=== PATIENT | male | born 1970 | race Two or more races ===

== ENCOUNTER → 2021-08-08 12:40 | Outpatient (BNVA) | payer MEDICAID, SELFPAY | PROVIDERS: PCP Family Medicine; Referring Provider Family Medicine; Visit Provider Physician Assistant | DX: Z12.11 Encounter for screening for malignant neoplasm of colon (principal) | CPT/HCPCS: 99202 ==

== ENCOUNTER 2021-09-13 13:05 | Day surgery (SDC) | payer MEDICAID, SELFPAY ==
[2021-09-06 16:02] VITALS: BMI 29.2
--- NOTE | 2021-09-13 13:08 | MHC.SHP ---
Pre-Procedural Eval Section A Date of Service: 09/13/21 Section B Chief Complaint: Screening Relevant Family History (Specify if Yes): No Relevant Social History: None Present Medications: see Short Stay Collaborative assessment Medical History: Significant History (deaf, HTN, ) History of Previous Operations: No relevant previous surgery Allergies: Allergies Allergy/AdvReac Type Severity Reaction Status Date / Time fish derived [fish] Allergy Hives Verified 09/06/21 16:01 sodium chloride AdvReac Intermediate tachycardia Verified 09/06/21 15:54 Review of Systems Sugical H&P ROS: Negative: Constitution, Cardiovascular, Respiratory, Neurological, Psychiatric, Hem-Onc, Allergic/Immunologic, Gastrointestinal, Genitourinary, Musculoskeletal, Integumentary, Endocrine and Eyes/Ears/Nose/Throat Exam Surgical H&P Exam: Normal: Heart, Normal: Lungs, Normal: Extremities, Normal: Abdomen, Normal: Skin and Normal: Neurological and Significant Findings: HEENT (deaf) Plan Diagnosis/Plan: Unchanged I have reviewed the history and physical and performed a pertinent physical examination on my patient. No changes have occurred unless specified.
--- NOTE | 2021-09-13 13:22 | P.CONAN_ITS ---
[facility] Active Problems Active Problems: All Active Problems (Updated 09/06/21 @ 15:55 by Jessica nelson RN) Encounter for screening colonoscopy (Acute) Past Medical History Medical History HTN (hypertension) Cognitive capacity: surdo-mutity Functional capacity: independent ambulation Family History Family History Sister Colon polyps Mother Asthma Family history of problems with anesthesia: No Surgical History History of Problems with Anesthesia: No Social History Social History (Updated 08/08/21 @ 13:14 by Penny Tobar PA-C) Household Members Other:: - no kids Alcohol intake: never Patient Tobacco Use Status: Never used Tobacco Use of substances other than those prescribed or required for medical reasons: No Are you DNR?: No Advance Directives: No Advance Directives on File: No Current occupational status: unemployed and retired Meds Allergies Allergy/AdvReac Type Severity Reaction Status Date / Time fish derived [fish] Allergy Hives Verified 09/06/21 16:01 sodium chloride AdvReac Intermediate tachycardia Verified 09/06/21 15:54 Home Medications Medication Instructions Recorded Confirmed Last Taken Type amlodipine 5 mg tablet 5 mg PO DAILY 08/08/21 09/06/21 Unknown History carvedilol 12.5 mg tablet 12.5 mg PO BID 08/08/21 09/06/21 Unknown History hydrochlorothiazide 25 mg tablet 25 mg PO DAILY 08/08/21 09/06/21 Unknown History lisinopril 40 mg tablet 40 mg PO DAILY 08/08/21 09/06/21 Unknown History spironolactone 50 mg tablet 50 mg PO DAILY 08/08/21 09/06/21 Unknown History Exam Exam Date and Time: September 13, 2021 1322 Height,Weight and Vital Signs: Height 5 ft 7 in Weight 84.822 kg Assessment and Plan Final Anesthetic Review Family History of Problems with Anesthesia: No History of Problems with Anesthesia: No
[2021-09-13 13:33] VITALS: BP 121/79; PULSE 70; RESP 16; TEMP 36.1; O2SAT 97
[2021-09-13] MEDS: Lactated Ringers 1,000 ML 50 ML IVCONT (13:45)
--- NOTE | 2021-09-13 14:18 | PM.OP ---
Brief Operative Note Date of Service: 09/13/21 Pre-op diagnosis: screening colonoscopy Post-op diagnosis: same Procedure: see op note Surgeon: Cornel Jiang MD Anesthesia: MAC Was an Veterinary Laboratory Diagnostician used for this Procedure?: No Estimated blood loss (mL): 0 Condition: stable Disposition: PACU
--- NOTE | 2021-09-13 14:18 | W.PM.OPN ---
Operative Note Operative Note Date of Service: 09/13/21 Narrative: Operative Information Procedure Description: Colonoscopy COLONOSCOPY Instrument: Olympus variable stiffness pediatric scope 190L Colonoscopy Monitoring: Vital signs and clinical assessment, continuous EKG monitoring, Pulse oximetry, Carbon Dioxide monitoring and blood pressure monitoring were done throughout the procedure. Colon withdrawal time was 12 minutes. Procedure: The patient was placed in the left lateral decubitis position and pre-procedure medications were administered. After a digital rectal examination of the ano-rectum, the video colonoscope was inserted into the rectum and advanced through the colon to the cecum/TI. The colonoscope was slowly withdrawn in a retrograde panoramic fashion and the colon mucosa was carefully examined including a retroflexed view of the rectum. Findings and interventions are described below. Procedure Difficulty: moderate due to looping, redundant colon Findings: Terminal Ileum-not intubated scattered diverticula thru out colon Cecum:normal Ascending Colon: normal Transverse Colon -normal Descending Colon:normal Sigmoid Colon: 10-12 mm sessile polyp removed with cold snare, some residual tissue taken with forceps Rectum: Retroflexion with moderate sized internal hemorrhoids, grade II with skin tags Anorectum - internal hemorrhoids seen at anal verge Colon preparation: [place] Bowel Preparation Scale Right colon; 3 Transverse colon: 2 Left colon; 3 (0 = Unprepared colon segment with mucosa not seen due to solid stool that cannot be cleared. 1 = Portion of mucosa of the colon segment seen, but other areas of the colon segment not well seen due to staining, residual stool and/or opaque liquid. 2 = Minor amount of residual staining, small fragments of stool and/or opaque liquid, but mucosa of colon segment seen well. 3 = Entire mucosa of colon segment seen well with no residual staining, small fragments of stool or opaque liquid) Impression and Post Procedure Diagnosis: polyp internal hemorrhoids diverticular disease Plan: High fiber diet leaflet Avoid straining at stool, epsom salts and sitz bath, anusol supps or cream Repeat Colonoscopy in 5 years due to polyp or earlier if clinically indicated Above findings were reviewed with the patient and relevant handouts were provided if indicated.
[2021-09-13 14:25] VITALS: BP 111/55; PULSE 77; RESP 14; TEMP 36.5; O2SAT 98
[2021-09-13 14:55] VITALS: BP 113/66; PULSE 65; RESP 18; TEMP 36.4; O2SAT 96
== END 2021-09-13 15:40 | disposition home or self-care (01) ==
PROVIDERS: PCP Family Medicine; Visit Provider Internal Medicine Gastroenterology
PROC: 0DJD8ZZ Inspection of Lower Intestinal Tract, Via Natural or Artificial Opening Endoscopic (ICD-10-PCS; CPT 45378; principal; 2021-09-13 14:10)
DX: Z12.11 Encounter for screening for malignant neoplasm of colon (principal); Z83.71 Family history of colonic polyps; D12.5 Benign neoplasm of sigmoid colon; K57.30 Diverticulosis of large intestine without perforation or abscess without bleeding; K64.1 Second degree hemorrhoids; K64.4 Residual hemorrhoidal skin tags; I10 Essential (primary) hypertension; H91.90 Unspecified hearing loss, unspecified ear; H54.7 Unspecified visual loss; Z79.899 Other long term (current) drug therapy
CPT/HCPCS: 45385; 45380; 88305

== ENCOUNTER → 2021-12-31 12:33 | Outpatient (BNVA) | payer MEDICAID, SELFPAY | PROVIDERS: PCP Family Medicine; Referring Provider Family Medicine; Visit Provider Physician Assistant | DX: K57.30 Diverticulosis of large intestine without perforation or abscess without bleeding (principal); K64.9 Unspecified hemorrhoids; D36.9 Benign neoplasm, unspecified site | CPT/HCPCS: 99212 ==

== ENCOUNTER 2022-12-03 16:09 | Outpatient (REF) | payer MEDICAID, SELFPAY ==
--- NOTE | ~2022-12-03 | XR_ITS ---
EXAMINATION: XR ELBOW, LEFT CLINICAL INFORMATION: Left elbow pain. COMPARISON: None TECHNIQUE: AP, lateral, and oblique views of the left elbow. FINDINGS: There is a large olecranon enthesophyte. Small lateral epicondylar enthesophyte is also visualized. No loose bodies, bony erosive changes or joint effusion noted. No visible acute fracture or dislocation. XR/XR elbow LT 2V IMPRESSION: Large degenerative olecranon process and a small medial epicondyle enthesophytes.
== END 2022-12-03 16:10 | disposition home or self-care (01) ==
LOC: HO.XRAY 16:09
PROVIDERS: PCP Family Medicine; Visit Provider Family Medicine
DX: M25.422 Effusion, left elbow (principal)
CPT/HCPCS: 73070

== ENCOUNTER → 2022-12-23 09:02 | Outpatient (BNVA) | payer MEDICAID, SELFPAY | PROVIDERS: PCP Family Medicine; Visit Provider Orthopaedic Surgery | DX: M70.32 Other bursitis of elbow, left elbow (principal) | CPT/HCPCS: 99202 ==

== ENCOUNTER 2023-10-06 09:16 | Outpatient (REF) | payer MEDICAID, SELFPAY ==
[2023-10-06 11:17] LABS: MANUAL DIFF FLAG NO
[2023-10-06 11:37] LABS: Basophils Percent Auto 0.5 % (0-2); Eosinophils Absolute Auto 0.1 X10*3/uL (0.0-0.4); Eosinophils Percent Auto 1.2 % (0-4); Hematocrit 43.6 % (42.0-52.0); Hemoglobin 14.1 g/dl (14.0-18.0); Imm Gran Abs Auto 0.02 X10*3/uL (0.00-0.03); Imm Gran Pct Auto 0.3 % (0.0-0.4); Lymphocytes Absolute Auto 2.4 X10*3/uL (1.2-4.9); Lymphocytes Percent Auto 39.4 % (20-40); Mean Corpuscular HGB Conc 32.3 g/dl (31.0-36.0); Mean Corpuscular Hemoglobin 28.8 pg (27.0-33.0); Mean Corpuscular Volume 89.2 fL (80.0-98.0); Mean Platelet Volume 10.9 fL (9.4-12.4); Monocytes Absolute Auto 0.5 X10*3/uL (0.1-1.2); Monocytes Percent Auto 7.7 % (2-11); Neutrophils Absolute Auto 3.1 x10*3/uL (2.0-8.3); Neutrophils Percent Auto 50.9 % (45-73); Platelet Count 254 X10*3/uL (160-400); Red Blood Count 4.89 X10*6/uL (4.60-5.80); Red Cell Distribution Width 12.5 % (11.0-16.0)
[2023-10-06 11:50] LABS: Anion Gap 11 (12-20); Blood Urea Nitrogen 20 mg/dL (9-16); C Reactive Protein < 0.10 mg/dL (< or = 0.50); Calcium 9.7 mg/dL (8.4-10.2); Carbon Dioxide 27 mmol/L (22-29); Chloride 102 mmol/L (96-108); Estimated Glomerular Filt Rate 55; Glucose Random 96 mg/dL (60-115); Potassium 4.4 mmol/L (3.3-5.1); Sodium 136 mmol/L (135-145); Uric Acid 7.7 mg/dL (3.4-7.0)
== END 2023-10-06 09:17 | disposition home or self-care (01) ==
LOC: HO.HHCLNP 09:16
PROVIDERS: Visit Provider Family Medicine
DX: M25.422 Effusion, left elbow (principal)
CPT/HCPCS: 36415; 80048; 84550; 85025; 86140

== ENCOUNTER 2023-11-18 09:18 | Outpatient (REF) | payer MEDICAID, SELFPAY ==
[2023-11-18 11:20] LABS: MANUAL DIFF FLAG NO
[2023-11-18 11:34] LABS: Basophils Percent Auto 0.3 % (0-2); Eosinophils Absolute Auto 0.1 X10*3/uL (0.0-0.4); Eosinophils Percent Auto 0.5 % (0-4); Hemoglobin 14.3 g/dl (14.0-18.0); Imm Gran Abs Auto 0.03 X10*3/uL (0.00-0.03); Imm Gran Pct Auto 0.3 % (0.0-0.4); Lymphocytes Absolute Auto 1.8 X10*3/uL (1.2-4.9); Lymphocytes Percent Auto 18.8 % (20-40); Mean Corpuscular HGB Conc 32.5 g/dl (31.0-36.0); Mean Corpuscular Volume 89.2 fL (80.0-98.0); Monocytes Absolute Auto 0.5 X10*3/uL (0.1-1.2); Monocytes Percent Auto 5.6 % (2-11); Neutrophils Absolute Auto 7.2 x10*3/uL (2.0-8.3); Neutrophils Percent Auto 74.5 % (45-73); Platelet Count 253 X10*3/uL (160-400); Red Blood Count 4.93 X10*6/uL (4.60-5.80); Red Cell Distribution Width 12.5 % (11.0-16.0); White Blood Count 9.6 X10*3/uL (4.8-10.8)
[2023-11-18 12:00] LABS: HIV AB/AG Nonreactive (Nonreactive); HIV Num 1 0.04 S/CO (0.00-0.99); ~HepC Num1 0.78 S/CO (0.00-0.79); ~Hepatitis C Antibody Nonreactive (Nonreactive)
[2023-11-18 12:18] LABS: Alanine Aminotransferase 33 U/L (0-40); Albumin Level 4.3 g/dL (3.5-5.0); Alkaline Phosphatase 107 U/L (39-117); Anion Gap 12 (12-20); Aspartate Amino Transferase 20 U/L (5-37); Bilirubin Direct 0.2 mg/dL (0.0-0.5); Bilirubin Total 0.7 mg/dL (0.0-1.0); Blood Urea Nitrogen 12 mg/dL (9-16); Calcium 9.8 mg/dL (8.4-10.2); Carbon Dioxide 27 mmol/L (22-29); Chloride 104 mmol/L (96-108); Cholesterol 164 mg/dL (<200); Estimated Glomerular Filt Rate > 60; Glucose Random 98 mg/dL (60-115); HDL Cholesterol 45 mg/dL (>40); LDL Cholesterol Calculated 99 mg/dL (<100); Potassium 4.6 mmol/L (3.3-5.1); Sodium 138 mmol/L (135-145); Total Protein 7.7 g/dL (6.5-8.0); Triglycerides 102 mg/dL (<150)
[2023-11-18 13:24] LABS: Vitamin B12 218 pg/mL (200-900)
[2023-11-18 13:29] LABS: TSH reflex Free T4 0.37 uIU/mL (0.32-4.0)
== END 2023-11-18 09:19 | disposition home or self-care (01) ==
LOC: HO.HHCL 09:18
PROVIDERS: Visit Provider Family Medicine
DX: I1A.0 Resistant hypertension (principal); Z11.3 Encounter for screening for infections with a predominantly sexual mode of transmission; E53.9 Vitamin B deficiency, unspecified; Z11.59 Encounter for screening for other viral diseases; Z13.220 Encounter for screening for lipoid disorders; Z13.29 Encounter for screening for other suspected endocrine disorder
CPT/HCPCS: 36415; 80048; 80061; 80076; 82607; 83735; 84443; 85025; 86803; 87389

== ENCOUNTER 2024-08-30 10:17 | Outpatient (AMB) | payer MEDICAID, SELFPAY ==
--- NOTE | 2024-08-30 10:36 | MHC.OFFVIS ---
Intake Visit Reasons: penile irritation/ chronic penile pain Intake Note: Patient is present for penile irritation/chronic penile pain Urology Medication:none Antibiotic Allergy:none Blood Thinner:none Brand Activation Manager Required: No Allergies fish derived [fish] Allergy (Verified 08/30/24 11:17) Hives sodium chloride Adverse Reaction (Intermediate, Verified 08/30/24 11:17) tachycardia Medication List - Last Reconciled 08/30/24 by FRANKY Rojas amlodipine 5 mg PO DAILY carvedilol 12.5 mg PO BID hydrochlorothiazide 25 mg PO DAILY lisinopril 40 mg PO DAILY methylcellulose (laxative) (Citrucel) 500 mg PO BID spironolactone 50 mg PO DAILY HPI Comments Details: Sanford is a very pleasant 54-year-old male patient of Dr. 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 He has a past medical history of hypertension. He presents to the office today as a new patient for penile rash. In discussion with the patient today reports noting over the last 3 months he has been having ongoing issues with redness and itchiness to his penis. In assessment of the patient today the penis is uncircumcised upon retraction of penile foreskin the penile gland is mildly irritated. No open areas, lesions, and or drainage noted. We discussed balanitis. He reports having been prescribed nystatin with PCP however has not found this helpful. He otherwise denies any bothersome urinary issues. He denies urinary urgency, urinary frequency, incontinence, nocturia, hematuria, dysuria, foul smelling urine, changes to urinary stream, flank pain, fever, and or chills. He is happy with his current voiding parameters. When asked he does report to be sexually active with one partner/. We discussed proper hygiene of area. He otherwise offers no other issues or concerns at this time. [facility] Medical History HTN (hypertension) Family History Sister Colon polyps Mother Asthma Social History Household Members Other:: - no kids Alcohol intake: never Patient Tobacco Use Status: Never used Tobacco Current occupational status: unemployed and retired Review of Systems Const All systems reviewed & are unremarkable except as noted in HPI and below Physical Exam Const General: cooperative, healthy appearing, comfortable, no acute distress, well developed, alert and awake Orientation/consciousness: patient oriented x3 Limitations: no limitations and language barrier HEENT Head: Yes normal to inspection, Yes normocephalic and Yes atraumatic Ears: hearing grossly normal bilaterally Eyes General: appearance normal, both eyes and all related structures Neck Neck: Yes normal visual inspection and Yes trachea midline Chest Chest palpation & inspection: normal inspection of the chest Resp Effort & Inspection: normal respiratory effort and able to speak in complete sentences Cardio Rate: regular rate GI Inspection: Yes normal to inspection General: Yes no CVA tenderness Penis: normal penis and uncircumcised Meatus: meatus normal and Erythema at meatus Scrotum: scrotum normal Testes: Testes normal Back/Spine/Pelvis Back: no CVA tenderness Skin General skin exam: no rashes or lesions noted Neuro General: patient oriented x3 Extrem General: Yes normal to inspection Psych Appearance: grossly normal and well kempt Mental Status: mental status grossly normal Speech and movement: Normal speech and movement present and Clear speech present Affect: normal affect Attitude: cooperative Thought process: Normal thought process present Thought content: Normal thought content present Insight: Fair insight present (Psych) Judgement: Fair judgement present (Psych) Results AMB Urinalysis, Automated UA Leukoctes 0 Po/uL Last Edit by EMILY Contreras on 08/30/24 10:44 UA Nitrite Negative Last Edit by EMILY Contreras on 08/30/24 10:44 UA Urobilinogen 0.2 mg/dL Last Edit by EMILY Contreras on 08/30/24 10:44 UA Protein 15 mg/dL Last Edit by EMILY Contreras on 08/30/24 10:44 UA pH 6.0 Last Edit by EMILY Contreras on 08/30/24 10:44 UA Blood 0 Lee/uL Last Edit by EMILY Contreras on 08/30/24 10:44 UA Specific [place] 1.020 Last Edit by EMILY Contreras on 08/30/24 10:44 UA Ketone Negative Last Edit by EMILY Contreras on 08/30/24 10:44 UA Bilirubin 0 mg/dL Last Edit by EMILY Contreras on 08/30/24 10:44 UA Glucose 0 mg/dL Last Edit by EMILY Contreras on 08/30/24 10:44 Results Reviewed Results Reviewed: Laboratory Last Values Urine pH (Auto) 6.0 08/30/24 10:43 Specific [place] (Auto) 1.020 08/30/24 10:43 Urine Protein (Auto) 15 mg/dL 08/30/24 10:43 Glucose (UA)(Auto) 0 mg/dL 08/30/24 10:43 Urine Ketones (Auto) Negative 08/30/24 10:43 Urine Blood (Auto) 0 Lee/uL 08/30/24 10:43 Urine Nitrite (Auto) Negative 08/30/24 10:43 Urine Bilirubin (Auto) 0 mg/dL 08/30/24 10:43 Urine Urobilinogen (Auto) 0.2 mg/dL 08/30/24 10:43 Leukocyte Esterase (Auto) 0 Po/uL 08/30/24 10:43 Assessment & Plan Assessment & Plan (1) Balanitis: Code(s): N48.1 - Balanitis Category: Medical Plan In office urinalysis results reviewed with the patient today; as noted above. Discussed at length potential causes of balanitis. Start clotrimazole-betamethasone 1-0.05 % as discussed and prescribed. Discussed proper care of area. Patient currently denies any bothersome urinary issues or concerns. He reports be happy with current voiding parameters. Follow-up in 1-2 months; or sooner with any issues, concerns, and or questions. Orders: Orders AMB Urinalysis Automated Today Z13.9 - Encounter for screening, unspecified Medications: New clotrimazole-betamethasone 1-0.05 % Apply thin coat 2 times per day 1 appl topical BID 4 weeks 45 grams 0RF N48.1 - Balanitis Patient Instructions: The patient had an opportunity to ask questions regarding the treatment plan. All questions were answered. Physical exam, labs, and imaging were discussed and reviewed in detail. As well as risks, benefits, and discussion of treatment choices. No major barriers to understanding were identified. The patient expressed understanding and agreement with the above treatment plan. The patient was made aware they should contact our office by phone for worsening of their current condition, the appearance of new symptoms, or with any questions or concerns. Compliance is encouraged with any medications and follow up testing that is ordered. It is a privilege to be allowed the opportunity to participate in? your urological care.? Again, if you have any questions or concerns If you have any questions or concerns please do not hesitate to contact me. The office is [phone]. This note is constructed using voice recognition software. While every effort has been made to ensure accuracy lead radiation therapist errors may have been included. Yours sincerely, FRANKY Rojas Coding Level of Care Code New Pt Level 4 (05769) Diagnoses Balanitis N48.1
== END 2024-08-30 11:14 | disposition home or self-care (01) ==
LOC: HO.HUSH 10:17
PROVIDERS: PCP Family Medicine; Visit Provider Nurse Practitioner Family
DX: N48.1 Balanitis (principal); Z13.9 Encounter for screening, unspecified
CPT/HCPCS: 99204

== ENCOUNTER → 2024-08-30 10:17 | Outpatient (BNVA) | payer MEDICAID, SELFPAY | PROVIDERS: PCP Family Medicine; Visit Provider Nurse Practitioner Family | DX: N48.1 Balanitis (principal) | CPT/HCPCS: 81003; 99212 ==

== ENCOUNTER 2025-03-14 12:57 | Outpatient (AMB) | payer MEDICAID, SELFPAY ==
--- NOTE | 2025-03-14 13:26 | MHC.OFFVIS ---
Intake Visit Reasons: 2m/penile irritation Intake Note: Patient is present for penile irritation/chronic penile pain Urology Medication:none Antibiotic Allergy:none Blood Thinner:none Safety Admin Assistant Required: Yes Safety Admin Assistant Name: Bolivar [id number] Accompanied by: Self / Same As Patient Allergies fish derived [fish] Allergy (Verified 08/30/24 11:17) Hives sodium chloride Adverse Reaction (Intermediate, Verified 08/30/24 11:17) tachycardia Medication List - Last Reconciled 03/14/25 by FRANKY Rojas amlodipine 5 mg PO DAILY carvedilol 12.5 mg PO BID clotrimazole-betamethasone 1-0.05 % 1 appl topical BID 4 weeks hydrochlorothiazide 25 mg PO DAILY lisinopril 40 mg PO DAILY methylcellulose (laxative) (Citrucel) 500 mg PO BID spironolactone 50 mg PO DAILY HPI Comments Details: Sanford is a very pleasant 54-year-old male patient of Dr. 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 He has a past medical history of hypertension. He presents to the office today for follow-up of his balanitis. In discussion with the patient today he reports utilizing topical Clortimazole-betamethasone as prescribed and feels balanitis has significantly improved. We did discussed potential causes of balanitis as well as treatment options and risks and benefits of these treatment options. In assessment of the patient today the penis is uncircumcised upon retraction of penile foreskin the gland does not appear irritated/reddened, no open areas, lesions, and or drainage noted. He otherwise denies any bothersome urinary issues. He denies urinary urgency, urinary frequency, incontinence, nocturia, hematuria, dysuria, foul smelling urine, changes to urinary stream, flank pain, fever, and or chills. He is happy with his current voiding parameters. In office urinalysis results reviewed with the patient today. We discussed proper hygiene of area. He otherwise offers no other issues or concerns at this time. [facility] Medical History HTN (hypertension) Family History Sister Colon polyps Mother Asthma Social History Household Members Other:: - no kids Alcohol intake: never Patient Tobacco Use Status: Never used Tobacco Current occupational status: unemployed and retired Review of Systems Const All systems reviewed & are unremarkable except as noted in HPI and below Physical Exam Const General: cooperative, healthy appearing, comfortable, no acute distress, well developed, alert and awake Orientation/consciousness: patient oriented x3 Limitations: language barrier HEENT Head: Yes normal to inspection, Yes normocephalic and Yes atraumatic Ears: hearing grossly normal bilaterally Eyes General: appearance normal, both eyes and all related structures Neck Neck: Yes normal visual inspection and Yes trachea midline Chest Chest palpation & inspection: normal inspection of the chest Resp Effort & Inspection: normal respiratory effort and able to speak in complete sentences Cardio Rate: regular rate GI Inspection: Yes normal to inspection General: Yes no CVA tenderness Penis: normal penis and uncircumcised Meatus: meatus normal and Erythema at meatus Scrotum: scrotum normal Testes: Testes normal Back/Spine/Pelvis Back: no CVA tenderness Skin General skin exam: no rashes or lesions noted Neuro General: patient oriented x3 Extrem General: Yes normal to inspection Psych Appearance: grossly normal and well kempt Mental Status: mental status grossly normal Speech and movement: Normal speech and movement present and Clear speech present Affect: normal affect Attitude: cooperative Thought process: Normal thought process present Thought content: Normal thought content present Insight: Fair insight present (Psych) Judgement: Fair judgement present (Psych) Results AMB Urinalysis, Automated UA Leukoctes 0 Po/uL Last Edit by [email or web address] Softwarefrantz Rios on 03/14/25 14:49 UA Nitrite Last Edit by Kaylin Rios on 03/14/25 14:49 UA Urobilinogen 0.2 mg/dL Last Edit by ClairMailfrantz Rios on 03/14/25 14:49 UA Protein 0 mg/dL Last Edit by [email or web address] Softwarefrantz Rios on 03/14/25 14:49 UA pH 6.0 Last Edit by Kaylin Rios on 03/14/25 14:49 UA Blood 10 Lee/uL Last Edit by [email or web address] Softwarefrantz Rios on 03/14/25 14:49 UA Specific [place] 1.020 Last Edit by [email or web address] Softwarefrantz Rios on 03/14/25 14:49 UA Ketone Last Edit by Kaylin Rios on 03/14/25 14:49 UA Bilirubin 0 mg/dL Last Edit by Kaylin Rios on 03/14/25 14:49 UA Glucose 0 mg/dL Last Edit by Kaylin Rios on 03/14/25 14:49 Results Reviewed Results Reviewed: Laboratory Last Values Urine pH (Auto) 6.0 03/14/25 14:47 Specific [place] (Auto) 1.020 03/14/25 14:47 Urine Protein (Auto) 0 mg/dL 03/14/25 14:47 Glucose (UA)(Auto) 0 mg/dL 03/14/25 14:47 Urine Blood (Auto) 10 Lee/uL 03/14/25 14:47 Urine Bilirubin (Auto) 0 mg/dL 03/14/25 14:47 Urine Urobilinogen (Auto) 0.2 mg/dL 03/14/25 14:47 Leukocyte Esterase (Auto) 0 Po/uL 03/14/25 14:47 Assessment & Plan Assessment & Plan (1) Balanitis: Code(s): N48.1 - Balanitis Category: Medical Plan In office urinalysis results reviewed with the patient today; as noted above. We discussed at length potential causes of balanitis as well as further treatment options and risks and benefits of these treatment options. Patient currently denies any bothersome urinary issues or concerns. He reports be happy with current voiding parameters. We discussed surveillance monitoring verses prn follow-up We discussed proper hygiene. Patient would like to follow-up PRN Orders: Orders AMB Urinalysis Automated Today Z13.9 - Encounter for screening, unspecified Patient Instructions: The patient had an opportunity to ask questions regarding the treatment plan. All questions were answered. Physical exam, labs, and imaging were discussed and reviewed in detail. As well as risks, benefits, and discussion of treatment choices. No major barriers to understanding were identified. The patient expressed understanding and agreement with the above treatment plan. The patient was made aware they should contact our office by phone for worsening of their current condition, the appearance of new symptoms, or with any questions or concerns. Compliance is encouraged with any medications and follow up testing that is ordered. It is a privilege to be allowed the opportunity to participate in? your urological care.? Again, if you have any questions or concerns If you have any questions or concerns please do not hesitate to contact me. The office is [phone]. This note is constructed using voice recognition software. While every effort has been made to ensure accuracy ends down checker errors may have been included. Yours sincerely, FRANKY Rojas Coding Level of Care Code Est Pt Level 4 (37403) Diagnoses Balanitis N48.1 Time Spent (min) 30
--- OUTSIDE RECORDS SUMMARY | 2025-03-14 14:52 | XMS_ITS | Clinical Summary ---
Author Organization [employer] Address [address] [facility] 7t [place] [address] Care Team Providers Care Information Scientist Name Role Phone Nneka Wylie MD Primary Care Provider +1- [phone] Allergies No known active allergies Medications nystatin (Mycostatin) creamIndications: Penile pain Apply topically 2 times daily. For 2 weeks 15 g 2 4 07/08/20 25 Active carvedilol (Coreg) 25 MG tabletIndications :Resistant hypertension TAKE 1 TABLET BY MOUTH TWICE DAILY AT NOON AND BEDTIME 180 tablet 2 4 Active hydroCHLOROthiazi de (HYDRODiuril) 25 MG tabletIndications :Resistant hypertension TAKE 1 TABLET BY MOUTH EVERYDAY AT NOON 90 tablet 2 5 Active spironolactone (Aldactone) 50 MG tabletIndications :Resistant hypertension TAKE 1 TABLET BY MOUTH EVERYDAY AT NOON 90 tablet 2 5 Active amLODIPine (Norvasc) 5 MG tabletIndications :Resistant hypertension TAKE 1 TABLET BY MOUTH EVERYDAY AT NOON 90 tablet 2 5 Active lisinopril 40 MG tabletIndications :Resistant hypertension TAKE 1 TABLET BY MOUTH EVERYDAY AT NOON 90 tablet 2 5 Active Active Problems Problem Noted Date Diagnosed Date 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 Ok to use something that is more PH balanced like dove -A1C was WNL -Trialed Nystatin, still having pain -referred to Urology 07/08/24 -seen by urology 08/30/24 dx with kiersten and prescribed clotrimazole betamethazole cream Assessment & Plan (07/08/2024 10:30 AM EDT): Dermatitis vs Candidiasis - Advised to stop using Cuban spring soap. Ok to use something that is more PH balanced like dove -A1C was WNL -Trialed Nystatin, still having pain -referred to Urology 07/08/24 Pre-diabetes 02/06/2024 Overview (07/08/2024): Lab Results Component Value Date HGBA1C 5.8 02/06/2024 GLUCOSE 98 11/18/2023 -Stop Sprite and change to water -ordered A1C 07/08/24 Assessment & Plan (07/08/2024 10:40 AM EDT): Lab Results Component Value Date HGBA1C 5.8 02/06/2024 GLUCOSE 98 11/18/2023 -Stop Sprite and change to water -ordered A1C 07/08/24 Assessment & Plan (02/06/2024 10:46 AM EST): -HbA1C was 5.8 on 02/06/2024 -Stop Sprite and change to water Lipoma of back 11/17/2023 Preventative health care 10/13/2023 Overview (03/02/2025): -next physical exam due 12/01/2024 -eye care facilitated by [facility] opt 07/2023 -dental home unknown, not established yet. Encouraged getting established. -health care proxy filed 02/06/24 Assessment & Plan (07/08/2024 10:27 AM EDT): -next physical exam due 12/01/24 -eye care facilitated by [facility] optho 07/2023 -dental home unknown, not established yet. Encouraged getting established. 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 Please make note of this in any referrals. Assessment & Plan (07/08/2024 10:21 AM EDT): -Patient needs cementer oil well for all visits. Please make note of this in any referrals. Assessment & Plan (11/17/2023 11:42 AM EST): -Patient needs cementer oil well for all visits. Please make note of this in any referrals. . Mild intermittent asthma 09/01/2017 Overview (07/07/2024): -well controlled on albuterol prn Assessment & Plan (07/08/2024 10:29 AM EDT): -well controlled on albuterol prn Vitamin B deficiency 11/03/2014 Backache 06/10/2012 Overview (02/06/2024): MRI was performed at [facility] on 01/22/19, showing transitional lumbosacral anatomy and L-side neural foraminal narrowing at L5 nerve root. Seen by Dr. Palma, neurosurgery, s/p cortisone injection with good response but symptoms returned. He had repeat injection [id number] -MRI revealed lumbar spondylosis at L5-S1, stable compared to 2019 Likely musculoskeletal. Non-focal, normal motor exam without neurological deficits. No back pain red-flags: bowel/bladder incontinence, IVDU, urinary retention, saddle anesthesia, or significant motor deficits. -he completed physical therapy and has tried accupuncture -chiropractic referral requested 11/17/23, place -trial of lidocaine patches. -He has been seen by chiropractor in 2022. He has also been using TENS UNIT with no significant improvement. Assessment & Plan (07/08/2024 10:31 AM EDT): MRI was performed at [facility] on 01/22/19, showing transitional lumbosacral anatomy and L-side neural foraminal narrowing at L5 nerve root. Seen by Dr. Palma, neurosurgery, s/p cortisone injection with good response but symptoms returned. He had repeat injection [id number] -MRI [id number] revealed lumbar spondylosis at L5-S1, stable compared to 2019 Likely musculoskeletal. Non-focal, normal motor exam without neurological deficits. No back pain red-flags: bowel/bladder incontinence, IVDU, urinary retention, saddle anesthesia, or significant motor deficits. -he completed physical therapy and has tried accupuncture -chiropractic referral requested 11/17/23, place -trial of lidocaine patches. -He has been seen by chiropractor in 2022. He has also been using TENS UNIT with no significant improvement. Assessment & Plan (02/06/2024 10:40 AM EST): MRI was performed at [facility] on 01/22/19, showing transitional lumbosacral anatomy and L-side neural foraminal narrowing at L5 nerve root. Seen by Dr. Palma, neurosurgery, s/p cortisone injection with good response but symptoms returned. He had repeat injection [id number] -MRI [id number] revealed lumbar spondylosis at L5-S1, stable compared to 2019 Likely musculoskeletal. Non-focal, normal motor exam without neurological deficits. No back pain red-flags: bowel/bladder incontinence, IVDU, urinary retention, saddle anesthesia, or significant motor deficits. -he completed physical therapy and has tried accupuncture -chiropractic referral requested 11/17/23, place -trial of lidocaine patches. -He has been seen by chiropractor in 2022. He has also been using TENS UNIT with no significant improvement. Assessment & Plan (11/17/2023 11:43 AM EST): MRI was performed at [facility] on 01/22/19, showing transitional lumbosacral anatomy and L-side neural foraminal narrowing at L5 nerve root. Seen by Dr. Palma, neurosurgery, s/p cortisone injection with good response but symptoms returned. He had repeat injection [id number] -MRI [id number] revealed lumbar spondylosis at L5-S1, stable compared to 2019 Likely musculoskeletal. Non-focal, normal motor exam without neurological deficits. No back pain red-flags: bowel/bladder incontinence, IVDU, urinary retention, saddle anesthesia, or significant motor deficits. -he completed physical therapy and has tried accupuncture -chiropractic referral requested 11/17/23, place -trial of lidocaine patches. Contact dermatitis 06/10/2012 Hypertension 06/08/2012 Overview (07/08/2024): -Blood pressure is at goal -Continue lifestyle modifications -Continue current medications -Follows with [facility] with our AL[facility] Collins Assessment & Plan (07/08/2024 10:21 AM EDT): -Blood pressure is at goal -Continue lifestyle modifications -Continue current medications -Follows with [facility] with our ALIA Collins Assessment & Plan (02/06/2024 10:34 AM EST): Not controlled -He states it is under 130 Systolic in the morning. He agrees to check it more than once in a day. Will have him come back for a nursing visit Assessment & Plan (11/17/2023 11:28 AM EST): Not controlled Will monitor BP readings at home. Resolved Problems Problem Noted Date Diagnosed Date Resolved Date Balanitis 08/31/2024 03/02/2025 B12 deficiency 07/08/2024 03/02/2025 Penile pain 02/06/2024 03/02/2025 Overview (07/08/2024): Dermatitis vs Candidiasis - Advised to stop using Cuban spring soap. Ok to use something that is more PH balanced like dove -Will check HGBA1C -Trial of Nystatin Assessment & Plan (02/06/2024 10:40 AM EST): Dermatitis vs Candidiasis -Advised to stop using Cuban spring soap. Ok to use something that is more PH balanced like dove -Will check HbA1C -Trial of Nystatin Physical exam 10/13/2023 07/07/2024 Overview (10/13/2023): -Normal growth and development. -Anticipatory guidance discussed. -Preventative care / harm reduction discussed. Elbow swelling, left 12/03/2022 025 Assessment & Plan (12/03/2022 11:30 AM EST): Pain and swelling after overuse. Likely tendonitis. No evidence of acute infection. Will check uric acid as less likely but gout on differential. Encounters Date Type Department Care Team Description 02/11/2025 Population Health Risk Score Community [facility] ([facility]) Department [address] [id number] Provider, Population Health Generic 01/28/2025 Refill [facility] [address] [place] [phone] Nneka Wylie MD Resistant hypertension from Last 3 Months Immunizations Name Administration Dates Next Due Hep B, adult 09/17/2019,09/03/2017,12/25/2001 Influenza injectable quadriv alent IIV4 with preservative 08/14/2018,09/03/2017,08/21/2016 Influenza injectable quadriv alent preservative free 11/17/2023,09/25/2020,09/17/2019,09/25 Influenza, IIV3, injectable 11/03/2014, 2 Influenza, Split (incl. khushi fied surface antigen) 11/25/2012 Moderna Covid-19 Vaccine 12+ 06/18/2022,06/11/20 21,05/15/2021 Pneumococcal Conjugate PCV 20 02/06/2024 Pneumococcal Polysaccharide PPSV23 06/10/2012 TD (adult), 2 Lf tetanus tox oid, preservative free, adsorbed 12/21/2009 Tdap 11/17/2023,06/10/2012 Zoster, Recombinant 04/21/2024,02/06/2024 Social History Tobacco Use Types Packs/Day Years Used Date Smoking Tobacco: Never Passive Smoke Exposure: Never Smokeless Tobacco: Never Tobacco Cessation:Counseling Given: Not Answered Depression Answer Date Recorded Patient Health Questionnaire-9 Score 2 07/08/2024 Patient Health Questionnaire-9 Score 2 07/08/2024 Last PHQ-9: Questionnaire Data Not on file 0 07/08/2024 Housing Stability Answer Date Recorded What is your housing situation today? I have charles armando 10/02/[address] you li ve. Do you have problems with any of the following? None of the above 10/02/2023 Food Insecurity Answer Date Recorded Within the past 12 months, y ou worried that your food would run out before you got money to buy more: Sometimes True 2022 Within the past 12 months,th e food you bought just didn't last and you didn't have enough money to get more: Sometimes True 10/02/2023 Transportation Answer Date Recorded In the past 12 months, has l ack of transportation kept you from medical appts, meetings, work or from getting things needed for daily living? No 10/02/2023 Utilities Answer Date Recorded In the past 12 months, has t he electric, gas, oil or water company threatened to shut off services in your home? No 10/02/2023 Depression Answer Date Recorded Patient Health Questionnaire-2 Score 1 07/08/2024 Sex and Gender Information Value Date Recorded Sex Assigned at Male 09/30/2022 10:16 AM EDT Legal Sex Male 10:16 AM EDT Gender Identity Male 09/30/2022 10:16 AM EDT Sexual Orientation Choose not to disclose 2021 10:16 AM EDT Last Filed Vital Signs Vital Sign Reading Time Taken Comments Blood Pressure 140/84 07/08/2024 10:07 AM EDT Pulse 77 07/08/2024 10:07 AM EDT Temperature 36.1 ??C (96.9 ??F) 07/08/2024 10:07 AM E DT Respiratory Rate 20 07/08/2024 10:07 AM EDT Oxygen Saturation 98% 07/08/2024 10:07 AM EDT Inhaled Oxygen Concentration - - Weight 93.1 kg (205 lb 3.2 oz) 07/08/2024 10:07 AM EDT Height 175.3 cm (5' 9 ) 08/05/2023 10:48 AM EDT Body Mass Index 30.3 08/05/2023 10:48 AM EDT Plan of Treatment Health Maintenance Due Date Last Done Comments CT Colonography 1971 FIT DNA/Cologuard 1971 FIT 1971 FOBT 1971 Sigmoidoscopy 1971 Alcohol/Substance Use Screening 1983 COVID-19 Vaccine ( season) 2024 06/18/2022, 06/11/2021, 05/15/2021 Influenza Vaccine (#1) 2024 , 09/25/2020, 09/17/2019, Additional history exists SDOH Screening 10/02/2024 10/02/2023 Depression Screening 07/08/2025 07/08/2024, 07/08/20 24 Tobacco Screening 08/26/2025 08/26/2024 Colonoscopy 09/13/2026 09/13/2021 Colorectal Cancer Screening 09/13/2026 Lipid Panel 11/18/2028 11/18/2023, 06/01, 09/25/2020 DTaP/Tdap/Td Vaccines (3 - Td or Tdap) 11/17/2033 11/17/2023, 06/10/2012, 12/21/2009 RSV Patients and Patients Aged 60 years or older (1 - 1-dose 75+ series) 2046 Hepatitis B Vaccines Completed 09/17/2019, 09/03/2017, 12/25/2001 HIV Screening Completed 11/18/2023 Hepatitis C Screening Completed 11/18/2023 Pneumococcal Vaccine: 50+ Years Completed 02/06/2024, 06/10/2012 Zoster Vaccines Completed 04/21/2024, 02/06/2024 HIB Vaccines Aged Out No longer eligi ble based on patient's age to complete this topic HPV Vaccines Aged Out No longer eligi ble based on patient's age to complete this topic Hepatitis A Vaccines Aged Out No long er eligible based on patient's age to complete this topic IPV Vaccines Aged Out No longer eligi ble based on patient's age to complete this topic Meningococcal Vaccine Aged Out No jose rios eligible based on patient's age to complete this topic RSV under 20 months Aged Out No longe r eligible based on patient's age to complete this topic Rotavirus Vaccines Aged Out No longer eligible based on patient's age to complete this topic Goals Goal Patient Goal Type Associated Problems Recent Progress Patient-Stated? Author Blood Pressure < 140/90 Blood Pressure 140/84( 024 10:07 AM EDT) No Sky Dorsey Procedures Procedure Name Priority Date/Time Associated Diagnosis Comments HEPATITIS C AB W/REFL TO HCV RNA, QN, PCR Routine 11/18/2023 9:20 AM EST Routine screening for STI (sexually transmitted infection) HIV 1/2 ANTIGEN/ANTIBODY, FOURTH GENERATION W/RFL Routine 11/18/2023 9:20 AM EST Routine screening for STI (sexually transmitted infection) LIPID PANEL, STANDARD Routine 11/18/2023 9:20 AM EST Resistant hypertension HM COLONOSCOPY Routine 09/13/2021 from Last 3 Months or Most Recently Relevant to Health Maintenance Results * Hepatitis C Antibody with Reflex to HCV, RNA, Quantitative, Real-Time PCR (11/18/2023 9:20 AM EST) Hepatitis C Antibody Nonreactive Nonreactive [facility] Comment:Antibodies to HCV no t detected; does not exclude early acuteHCV infection. Blood Venous blood specimen / Unknown 11/18/2023 9:20 AM EST 11/18/2023 11:16 AM EST us Nneka Wylie MD LAB BLOOD ORDERABLES Final Result [facility] [address] [place] [phone] * HIV-1/2 Antigen and Antibodies, Fourth Generation, with Reflexes (11/18/2023 9:20 AM EST) HIV AB/AG Nonreactive Nonreactive [facility] Comment:HIV-1 p24 Ag and/or HIV-1/HIV-2 Ab not detected.A test result that is nonreactive does not exclude thepossibility of exposure to or infection with HIV-1 and/orHIV-2. Nonreactive results in this assay for individualswith prior exposure to HIV-1 and/or HIV-2 may be due toantigen and antibody levels that are below the limit ofdetection of this assay.The [employer] HIV Ag/Ab Combo assay result andsupplemental assay results should be interpreted inconjunction with the patient's clinical presentation,history and other laboratory results. If the results areinconsistent with clinical evidence, additional testing issuggested to confirm the result. Blood Venous blood specimen / Unknown 11/18/2023 9:20 AM EST 11/18/2023 11:16 AM EST Nneka yWlie MD LAB BLOOD ORDERABLES Final Result Performing Organization Address City/[facility]/ZIP Co de Phone Number [facility] [address] [place] [address] [phone] * Lipid Panel, Standard (11/18/2023 9:20 AM EST) Triglycerides 102 <150 mg/dL [facility] Comment:Desirable Triglyceri de: less than 150 mg/dLBorderline High Triglyceride 150-199 mg/dLHigh Triglyceride: 200-499 mg/dLVery High Triglyceride: greater than or equal to 5OO mg/dL Cholesterol 164 <200 mg/dL [facility] Comment:Desirable Cholestero l: less than 200 mg/dLBorderline High Cholesterol: 200-239 mg/dLHigh Cholesterol: greater than 239 mg/dL LDL Cholesterol Calculated 99 <100 mg/dL [facility] Comment:Desirable LDL: less than 100 mg/dLNear Optimal/Above Optimal LDL: 110- 129 mg/dLBorderline High LDL: 130-159 mg/dLHigh LDL: 160-189 mg/dLVery High LDL: greater than or equal to 190 mg/dL HDL Cholesterol 45 >40 mg/dL [facility] Comment:Desirable HDL: great er than 40 mg/dL Note: This HDL assay may give artificially low results in patients with liver disease. Blood Venous blood specimen / Unknown 11/18/2023 9:20 AM EST 11/18/2023 11:16 AM EST Nneka Wylie MD LAB BLOOD ORDERABLES Final Result [facility] [address] [place] [phone] * Colonoscopy (09/13/2021) Colonoscopy tubular adenoma with Dr. Jiang us Historical Provider HEALTH MAINTENANCE Final Result from Last 3 Months or Most Recently Relevant to Health Maintenance [facility] Advance Directives Documents on File Type Date Recorded Patient Flatwork Catcher Expl anation Advance Directives and Living Will 02/10/2024 Health Care Proxy 02/06/24 Care Teams Information Scientist Relationship Specialty Start Date End Date Dejan, MD Nneka [address] [place] [address] PCP - General Family Medicine 12/01/18
--- OUTSIDE RECORDS SUMMARY | 2025-03-14 14:52 | XMS_ITS | Encounter Summary ---
Author Organization [employer] Address [address] [facility] 7t [place] [address] Care Team Providers Care Chainman Name Role Phone Nneka Wylie MD Primary Care Provider [phone]- [phone] Reason for Visit * Reason Onset Date Comments Nurse Triage 07/29/2023 Encounter Details Date Type Department Care Team ([facility] st Contact Info) Description 07/29/2023 Telephone [facility] [address] [place] [address] Nneka Wylie MD [address] [place], [place] [phone] Nurse Triage Social History Tobacco Use Types Packs/Day Years Used Date Smoking Tobacco: Never Assessed Sex and Gender Information Value Date Recorded Sex Assigned at Male 09/30/2022 10:16 AM EDT Legal Sex Male 10:16 AM EDT Gender Identity Male 09/30/2022 10:16 AM EDT Sexual Orientation Choose not to disclose 2021 10:16 AM EDT documented as of this encounter Miscellaneous Notes * Telephone Encounter - Carlotta Calixto RN - 07/29/2023 2:43 PM EDT [place] [id number] Pt reports 3 weeks ago went to laundry mat to wash clothes. After Pt washed the clothing , when Pt started wearing the clothes Pt started having some itchiness in the groin, upper thigh, penis area. Pt reports that this itchiness has increased, rashy red area with little red dots that are flat not raised. Pt is offered to come to [facility] today to be seen by provider and Pt reports doesn't have a car but, will come in a day or two. Advised Pt that triage note would be in place and can come tomorrow . Pt agreed with disposition. Protocol Used: Penis and Scrotum Symptoms (Adult) Protocol-Based Disposition: See in Office or Video Visit Today or Tomorrow Positive Triage Questions: * Severe itching (i.e., interferes with work or school) * Painless rash (e.g., redness, tiny bumps, sore) present > 24 hours * All higher-acuity triage questions were negative Care Advice Discussed: * Reassurance and Education - Mild Rash * Causes of Mild Rash * Wash the Area * Genital Hygiene * Hydrocortisone Cream for Itching * Reasons To Call Back - Rash spreads or becomes worse - Rash lasts more than one day - Fever occurs - You become worse * Telephone Encounter - Marilyn Salazar - 07/29/2023 2:22 PM EDT Symptom: Groin Pain - Male x 2 weeks Outcome: Talk to a nurse or provider within 15 minutes Reason: Swelling or pain in the scrotum and itching The caller accepted this outcome documented in this encounter Plan of Treatment Not on file documented as of this encounter Visit Diagnoses Not on filedocumented in this encounter Care Teams Chainman Relationship Specialty Start Date End Date Nneka Wylie MD [address] [place] [phone] PCP - General Family Medicine 12/01/18 documented as of this encounter
--- OUTSIDE RECORDS SUMMARY | 2025-03-14 14:52 | XMS_ITS | Encounter Summary ---
Author Organization [employer] Address [address] [facility] [address] [facility] [address] [place] [address] Care Team Providers Care Swimming Coach Or Instructor Name Role Phone Nneka Wylie MD Primary Care Provider [phone]- [phone] Reason for Visit * Reason Onset Date Comments Appointment Request 10/13/2023 Encounter Details Date Type Department Care Team ([facility] Contact Info) Description 10/13/2023 Telephone [facility]INE [address] [place] [address] Nneka Wylie MD [address] [place], [place] [phone] Appointment Request Social History Tobacco Use Types Packs/Day Years Used Date Smoking Tobacco: Never Passive Smoke Exposure: Never Smokeless Tobacco: Never Housing Stability Answer Date Recorded What is [...] off services in your home? No 10/02/2023 Sex and Gender Information Value Date Recorded Sex Assigned at Male 09/30/2022 10:16 AM EDT Legal Sex Male 10:16 AM EDT Gender Identity Male 09/30/2022 10:16 AM EDT Sexual Orientation Choose not to disclose 2021 10:16 AM EDT documented as of this encounter Miscellaneous Notes * Telephone Encounter - Petar Rob - 10/13/2023 9:35 AM EST Tc from pt spouse requesting to r/s appt today for Physical with provider due to transportation issues. Fire Behavior Analyst tried to r/s appt no availability was found advised will place pt over on recall list for December. documented in this encounter Plan of Treatment Not on file documented as of this encounter Visit Diagnoses Not on filedocumented in this encounter Care Teams Swimming Coach Or Instructor Relationship Specialty Start Date End Date Nneka Wylie MD [address] [place] [phone] PCP - General Family Medicine 12/01/18 documented as of this encounter
== END 2025-03-14 14:12 | disposition home or self-care (01) ==
PROVIDERS: PCP Family Medicine; Visit Provider Nurse Practitioner Family
DX: N48.1 Balanitis (principal); Z13.9 Encounter for screening, unspecified
CPT/HCPCS: 99214

== ENCOUNTER → 2025-03-14 12:57 | Outpatient (BNVA) | payer MEDICAID, SELFPAY | PROVIDERS: PCP Family Medicine; Visit Provider Nurse Practitioner Family | DX: N48.1 Balanitis (principal) | CPT/HCPCS: 81003; 99212 ==

== ENCOUNTER 2025-10-24 08:31 | Outpatient (REF) | payer MEDICAID, SELFPAY ==
--- OUTSIDE RECORDS SUMMARY | 2025-10-20 11:00 | XMS_ITS | Encounter Summary ---
Author Organization [employer] Address [address] [facility] 7t [place] [address] Care Team Providers Care Public Address Systems Mechanic Name Role Phone Nneka Wylie MD Primary Care Provider +1- [phone] Peace Larsen NP Unavailable Reason for Visit * Reason Comments Scaling And Root Planing LINA SUAREZ Encounter Details Date Type Department Care Team ([facility] st Contact Info) Description 10/20/2025 11:00 AM EST Office Visit [facility] ADULT DENTAL [address] [place] [address] Diane Wilson Subgingival dental calculus (Primary Dx); Supragingival dental calculus; Dental plaque Social History Tobacco Use Types Packs/Day Years Used Date Smoking Tobacco: Never Passive Smoke Exposure: Never Smokeless Tobacco: Never Depression Answer Date Recorded Patient Health Questionnaire-9 Score 2 07/08/2024 Patient Health Questionnaire-9 Score 2 07/08/2024 Last PHQ-9: Questionnaire Data Not on file 0 07/08/2024 Housing Stability Answer Date Recorded What is your housing situation today? I have charleslakshmi armando 10/02/[address] you [...] t he electric, gas, oil or water Helishopter threatened to shut off services in your home? No 10/02/2023 Depression Answer Date Recorded Patient Health Questionnaire-2 Score 1 07/08/2024 Sex and Gender Information Value Date Recorded Sex Assigned at Male 09/30/2022 10:16 AM EDT Legal Sex Male 10:16 AM EDT Gender Identity Male 09/30/2022 10:16 AM EDT Sexual Orientation Choose not to disclose 2021 10:16 AM EDT documented as of this encounter Last Filed Vital Signs Vital Sign Reading Time Taken Comments Blood Pressure 138/88 10/20/2025 4:45 PM EST Pulse - - Temperature - - Respiratory Rate - - Oxygen Saturation - - Inhaled Oxygen Concentration - - Weight - - Height - - Body Mass Index - - documented in this encounter Progress Notes * Diane Wilson - 10/20/2025 11:00 AM EST Patient ID: Sanford Magana is a 55 y.o. male. Time Out: No data recorded Location: [facility] Tooth: UL and LL Procedure: Scaling and Root Planing Verified the above with patient, esl instructional assistant, and provider. Confirmed via patient's chart, intraorally and by radiographs. Oil Well Services Superintendent: Yes. Language: Cuban Sign Language. Oil Well Services Superintendent: video line Medical Hx: Vitals: Blood pressure 138/88. Medications, Med Hx reviewed with patient and updated in chart. Treatment Provided Dental procedures in this visit D4341 - PERIODONTAL SCALING AND ROOT PLANING - 4 OR MORE TEETH PER QUADRANT UL (Completed) Service provider: Diane Martinez provider: Gina Fraser DDS D4341 - PERIODONTAL SCALING AND ROOT PLANING - 4 OR MORE TEETH PER QUADRANT LL (Completed) Service provider: Diane Martinez provider: Gina Fraser DDS D1330 - ORAL HYGIENE INSTRUCTIONS (Completed) Service provider: Diane Martinez provider: Gina Fraser DDS D9450 - CASE PRESENTATION, DETAILED AND EXTENSIVE TREATMENT PLANNING (Completed) Service provider: Diane Martinez provider: Gina Fraser DDS Topical: 20% Benzocaine Anesthesia: 2% Lidocaine (Xylocaine) w/ 1:100,000 epinephrine Number of Cartridges: 2 Injection Type: Inferior alveolar nerve block, Mental nerve block, Anterior superior alveolar nerveblock, Middle superior alveolar nerve block, and Posterior superior alveolar nerve block Confirmed profound anesthesia. Oral Cancer Screening: No lesions Head/Neck Exam: No Lesions Instruments Used: Ultrasonic Scalers, Hand Scalers, and floss Fluoride: N/A Calculus: Heavy, Generalized, and Subgingival Plaque: Moderate and Generalized Stain: Moderate and Generalized Bleeding: Heavy, Generalized, and Subgingival Gingiva: Recession- generalized, Edematous, and Erythematous OH: Poor Oral hygiene instructions provided to patient including brushing technique and flossing. Recommendations: [place] two times daily, modified valle technique, Floss daily, Electric toothbrush, Soft bristle toothbrush, [place] Tongue, Anti-sensitivity toothpaste Recall Frequency: 3 mo NV: SRP UR, LR Hygienist: Diane Wilson RDH * Gina Fraser DDS - 10/20/2025 11:00 AM EST I have reviewed the documentation and dental procedures made by the rendering provider, Diane Wilson RDH , and approve their chart entries for this visit. Gina Fraser DDS documented in this encounter Plan of Treatment Upcoming Encounters Date Type Department Care Team (Late st Contact Info) Description 10/24/2025 9:45 AM EST Office Visit [facility] MEDICINE [address] [place] [address] Nneka Wylie MD [address] [place] [address] 11/04/2025 11:00 AM EST Office Visit [facility] ADULT DENTAL [address] [place] [address] Diane Wilson documented as of this encounter Goals Goal Patient Goal Type Associated Problems Recent Progress Patient-Stated? Author Blood Pressure < 140/90 Blood Pressure 138/88( 025 4:45 PM EST) No Sky Dorsey documented as of this encounter Procedures Procedure Name Priority Date/Time Associated Diagnosis Comments UL PERIODONTAL SCALING AND ROOT PLANING - 4 OR MORE TEETH PER QUADRANT Routine 10/20/2025 11:00 AM EST Subgingival dental calculus Supragingival dental calculus Dental plaque LL PERIODONTAL SCALING AND ROOT PLANING - 4 OR MORE TEETH PER QUADRANT Routine 10/20/2025 11:00 AM EST Subgingival dental calculus Supragingival dental calculus Dental plaque ORAL HYGIENE INSTRUCTIONS Routine 10/20/2025 11:00 AM EST Subgingival dental calculus Supragingival dental calculus Dental plaque CASE PRESENTATION, DETAILED AND EXTENSIVE TREATMENT PLANNING Routine 10/20/2025 11:00 AM EST documented in this encounter Visit Diagnoses Diagnosis Subgingival dental calculus- Primary Accretions on teeth Supragingival dental calculus Accretions on teeth Dental plaque Accretions on teeth Pre-diabetes- Primary Other abnormal glucose Primary hypertension Unspecified essential hypertension Vitamin B deficiency Unspecified vitamin B deficiency Dyslipidemia Other and unspecified hyperlipidemia documented in this encounter Additional Health Concerns Assessment Noted Time PHQ-9 Depression Total Score: 2 07/08/20 24 10:57 AM EDT documented as of this encounter Care Teams Public Address Systems Mechanic Relationship Specialty Start Date End Date Nneka Wylie MD [address] [place] [address] PCP - General Family Medicine 12/01/18 Peace Larsen NP [address] [place] [address] Drive [address] [place] [address] Urology 03/15/25 documented as of this encounter
--- OUTSIDE RECORDS SUMMARY | 2025-10-24 08:47 | XMS_ITS | Encounter Summary ---
Author Organization [employer] Address [address] [facility] 7[address] [place] [address] Care Team Providers Care Traffic Control Flagger Name Role Phone Nneka Wylie MD Primary Care Provider +1- [phone] Peace Larsen ELECTRIFIER OPERATOR Unavailable Reason for Visit * Reason Onset Date Comments CHART PREP 10/21/2025 Encounter Details Date Type Department Care Team ([facility] st Contact Info) Description 10/21/2025 Telephone [facility] MEDICINE [address] [place] [address] Nneka Wylie MD [address] [place] [address] CHART PREP Social History Tobacco Use Types Packs/Day Years [...] encounter Miscellaneous Notes * Telephone Encounter - Poornima Carnes [place] - 10/21/2025 10:58 AM EST Chart Prep Labs: not done Images: not applicable Referrals: not applicable Vaccines due: Covid and Flu Screenings: not applicable Overdue care gaps: SBIRT, SDOH, PHQ-9, and SELINA-7 documented in this encounter Plan of Treatment Upcoming Encounters Date Type Department Care Team (Late st Contact Info) Description 10/24/2025 9:45 AM EST Office Visit [facility] MEDICINE [address] [place] [address] Nneka Wylie MD [address] [place] [address] 11/04/2025 11:00 AM EST Office Visit [facility] ADULT DENTAL [address] [place] [address] Diane Wilson documented as of this encounter Goals Goal Patient Goal Type Associated Problems Recent Progress Patient-Stated? Author Blood Pressure < 140/90 Blood Pressure 138/88( 025 4:45 PM EST) No Sky Dorsey documented as of this encounter Visit Diagnoses Not on filedocumented in this encounter Additional Health Concerns Assessment Noted Time PHQ-9 Depression Total Score: 2 07/08/20 24 10:57 AM EDT documented as of this encounter Care Teams Traffic Control Flagger Relationship Specialty Start Date End Date Nneka Wylie MD [address] [place] [address] [place] [address] PCP - General Family Medicine 12/01/18 Peace Larsen NP [address] [place] [address] Drive [address] [place] [address] Urology 03/15/25 documented as of this encounter
--- OUTSIDE RECORDS SUMMARY | 2025-10-24 08:47 | XMS_ITS | Encounter Summary ---
Author Organization [employer] Address [address] [facility] [address] 7[address] [place] [address] Care Team Providers Care Supervisor Dyer Name Role Phone Nneka Wylie MD Primary Care Provider +1- [phone] Peace Larsen FACULTY RESEARCH PHYSICIAN Unavailable Encounter Details Date Type Department Care Team ([facility] st Contact Info) Description 10/19/2025 Telephone [facility] MED[facility]INE [address] [place] [address] Nneka Wylie MD [address] [place] [address] Social History Tobacco Use Types Packs/Day Years [...] encounter Miscellaneous Notes * Telephone Encounter - Nneka Wylie MD - 10/19/2025 2:17 PM EST Please ask pt to go for fasting labs before visit on Friday if he can. He can go to [facility] if needed on Friday if he can't come on . Thank you. documented in this encounter Plan of Treatment Upcoming Encounters Date Type Department Care Team (Late st Contact Info) Description 10/24/2025 9:45 AM EST Office Visit [facility] MEDICINE [address] [place] [address] Nneka Wylie MD [address] [place] [address] 11/04/2025 11:00 AM EST Office Visit [facility] ADULT DENTAL [address] [place] [address] Diane Wilson documented as of this encounter [...] documented as of this encounter Care Teams Supervisor Dyer Relationship Specialty Start Date End Date Nneka Wylie MD [address] [place] [address] PCP - General Family Medicine 12/01/18 Peace Larsen NP [address] [place] [address] Urology 03/15/25 documented as of this encounter
--- OUTSIDE RECORDS SUMMARY | 2025-10-24 08:47 | XMS_ITS | Encounter Summary ---
Author Organization [employer] Address [address] [facility] [address] 7[address] [place] [address] Care Team Providers Care Physician'S Aide Name Role Phone Nneka Wylie MD Primary Care Provider +1- [phone] Peace Larsen STACKER DRIVER Unavailable Encounter Details Date Type Department Care Team ([facility] st Contact Info) Description 07/22/2025 Telephone [facility] MEDICINE [address] [place] [address] Nneka Wylie MD [address] [place] [address] Social History Tobacco Use Types Packs/Day Years [...] AM EDT documented as of this encounter Plan of Treatment Upcoming Encounters Date Type Department Care Team (Late st Contact Info) Description 10/24/2025 9:45 AM EST Office Visit [facility] MEDICINE [address] [place] [address] Nneka Wylie MD [address] [place] [address] 11/04/2025 11:00 AM EST Office Visit [facility] ADULT DENTAL [address] [place] [address] Diane Wilson documented as of this encounter [...] documented as of this encounter Care Teams Physician'S Aide Relationship Specialty Start Date End Date Nneka Wylie MD [address] [place] [address] PCP - General Family Medicine 12/01/18 Peace Larsen NP [address] [place] [address] Urology 03/15/25 documented as of this encounter
--- OUTSIDE RECORDS SUMMARY | 2025-10-24 08:47 | XMS_ITS | Encounter Summary ---
Author Organization [employer] Address [address] [facility] 7t [place] [address] Care Team Providers Care Line Servicer Name Role Phone Nneka Wylie MD Primary Care Provider +1- [phone] Peace Larsen POWER GENERATION ENGINEER Unavailable Reason for Visit * Reason Onset Date Comments Nurse Triage 07/29/2023 Encounter Details Date Type Department Care Team ([facility] st Contact Info) Description 07/29/2023 Telephone [facility] MEDICINE [address] [place], [place] [phone] Nneka Wylie MD [address] [place] [address] Nurse Triage Social History Tobacco Use Types [...] 07/29/2023 2:43 PM EDT [place] [id number] Pt reports 3 weeks ago went to laundry mat to wash clothes. After Pt washed the clothing , when Pt started wearing the clothes Pt started having some itchiness in the groin, upper thigh, penis area. Pt reports that this itchiness has increased, rashy red area with little red dots that are flat not raised. Pt is offered to come to [facility] today to be seen by provider and [...] Description 10/24/2025 9:45 AM EST Office Visit [facility] MEDICINE [address] [place] [address] Nneka Wylie MD [address] [place] [phone] 11/04/2025 11:00 AM EST Office Visit [facility] ADULT DENTAL [address] [place] [address] Diane Wilson documented as of this encounter Visit Diagnoses Not on filedocumented in this encounter Care Teams Line Servicer Relationship Specialty Start Date End Date Nneka Wylie MD [address] [place] [address] PCP - General Family Medicine 12/01/18 Peace Larsen NP [address] [place] [address] Urology 03/15/25 documented as of this encounter
--- OUTSIDE RECORDS SUMMARY | 2025-10-24 08:47 | XMS_ITS | Clinical Summary ---
Author Organization [employer] Address [address] [facility] 7t [place] [address] Care Team Providers Care Automobile Service Station Manager Name Role Phone Nneka Wylie MD Primary Care Provider [phone]- [phone] Peace Larsen BRIDAL SALES CONSULTANT Unavailable Allergies Active Allergy Reactions Criticality Noted Date Comments Fish Allergy 04/27/2025 Sodium Chloride 04/27/2025 Medications carvedilol (Coreg) 25 MG tabletIndications :Resistant hypertension [...] AT NOON 90 tablet 2 5 Active clotrimazole-beta methasone (Lotrisone) cream APPLY TO AFFECTED AREA 2 TIMES A DAY FOR 4 WEEKS. 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 Ok to use something that is more PH balanced like dove -A1C was WNL -Trialed Nystatin, still having pain -referred to Urology 07/08/24 -seen by urology 08/30/24 dx with ballinitis and prescribed clotrimazole betamethazole cream -note from Enrico Larsen BRIDAL SALES CONSULTANT with urology from 03/15/25 reviewed, no changes Assessment & Plan (07/08/2024 10:30 AM EDT): Dermatitis vs Candidiasis - Advised to stop using Liberian spring soap. Ok to use something that [...] exam due 12/01/2024 -eye care facilitated by [facility] 07/2023 -dental home unknown, not established yet. Encouraged getting established. -health care proxy filed 02/06/24 Assessment & Plan (07/08/2024 10:27 AM EDT): -next physical exam due 12/01/24 -eye care facilitated by [facility] 07/2023 -dental home unknown, not established yet. Encouraged getting established. -health care proxy 02/06/24 Assessment & Plan (11/17/2023 11:42 AM EST): -next physical exam due 11/17/2024 -eye care facilitated by [facility] 07/2023 -dental home is Herniation of lumbar intervertebral disc without myelopathy 12/03/2022 Bilateral deafness 07/16/2022 Overview (11/17/2023): -Patient needs ichthyology teacher for all visits. Please make note of this in any referrals. Assessment & Plan (07/08/2024 10:21 AM EDT): -Patient needs ichthyology teacher for all visits. Please make note of this in any referrals. Assessment & Plan (11/17/2023 11:42 AM EST): -Patient needs ichthyology teacher for all visits. Please make note of this in any referrals. . Mild intermittent asthma 09/01/2017 Overview (07/07/2024): -well controlled on albuterol prn Assessment & Plan (07/08/2024 10:29 AM EDT): -well controlled on albuterol prn Vitamin B deficiency 11/03/2014 Backache 06/10/2012 Overview (02/06/2024): MRI was performed at [facility] on 01/22/19, showing transitional lumbosacral [...] 10:31 AM EDT): MRI was performed at [facility] on 01/22/19, showing transitional lumbosacral anatomy and L-side neural foraminal narrowing at L5 nerve root. Seen by Dr. Palma, neurosurgery, s/p cortisone injection with good response but symptoms returned. He had repeat injection [id number] -MRI [id number] revealed lumbar spondylosis at L5-S1, stable compared [...] 10:40 AM EST): MRI was performed at [facility] on 01/22/19, showing transitional lumbosacral anatomy and L-side neural foraminal narrowing at L5 nerve root. Seen by Dr. Palma, neurosurgery, s/p cortisone injection with good response but symptoms returned. He had repeat injection [id number] -MRI [id number] revealed lumbar spondylosis at L5-S1, stable compared [...] 11:43 AM EST): MRI was performed at [facility] on 01/22/19, showing transitional lumbosacral [...] vs Candidiasis - Advised to stop using Liberian spring soap. Ok to use something that is more PH balanced like dove -Will check HGBA1C -Trial of Nystatin Assessment & Plan (02/06/2024 10:40 AM EST): Dermatitis vs Candidiasis -Advised to stop using Liberian spring soap. Ok to use something that [...] Encounters Date Type Department Care Team Description 10/21/[address] [address] Nneka Wylie MD CHART PREP 10/20/2025 11:00 AM EST Office Visit [facility] ADULT [facility] [address] [place] [phone] Diane Wilson Subgingival dental calculus (Primary Dx); Supragingival dental calculus; Dental plaque 10/19/[address] [address] Nneka Wylie MD Lab Orders 10/19/[address] [address] Nneka Wylie MD 09/19/2025 8:00 AM EDT Office Visit [facility] [address] [place] [phone] Gina Fraser DDS Dental caries (Primary Dx) 07/26/2025 10:30 AM EDT Office Visit [facility] ADULT [facility] [address] [place] [address] Gina Fraser DDS from Last 3 Months Immunizations Immunization Administration Dates Next Due Hep B, adult 09/17/2019,09/03/2017,12/25/2001 Influenza injectable quadriv alent IIV4 with preservative 08/14/2018,09/03/2017,08/21/2016 Influenza injectable quadriv alent preservative free 11/17/2023,09/25/2020,09/17/2019,09/25 Influenza, IIV3, injectable 11/03/2014, 2 Influenza, Split (incl. khushi fied surface antigen) 11/25/2012 Moderna Covid-19 Vaccine 12+ 06/18/2022,06/11/20,05/15/2021 Pneumococcal Conjugate PCV 20 02/06/2024 Pneumococcal Polysaccharide [...] the past 12 months, has t he [employer], gas, oil or water company threatened to [...] Pressure 138/88 10/20/2025 4:45 PM EST Pulse 70 07/05/2025 8:08 AM EDT Temperature 36.1 C (96.9 F) 07/08/2024 10:07 AM EDT Respiratory Rate 20 07/08/2024 10:07 AM EDT Oxygen Saturation 98% 07/08/2024 10:07 AM EDT Inhaled Oxygen Concentration - - Weight 93.1 kg (205 lb 3.2 oz) 07/08/2024 10:07 AM EDT Height 175.3 cm (5' 9 ) 08/05/2023 10:48 AM EDT Body Mass Index 30.3 08/05/2023 10:48 AM EDT Plan of Treatment Upcoming Encounters Date Type Department Care Team (Late st Contact Info) Description 10/24/2025 9:45 AM EST Office Visit [facility] MED[facility] [address] [place] [phone] Nneka Wylie MD [address] [place] [address] 11/04/2025 11:00 AM EST Office Visit [facility] ADULT [facility] [address] [place] [address] Diane Wilson Health Maintenance Due Date Last Done Comments CT Colonography 1971 FIT DNA/Cologuard 1971 FIT 1971 FOBT 1971 Sigmoidoscopy 1971 Disability Screening 1971 Alcohol/Substance Use Screening 1983 RSV Patients and Patients Aged 60 years or older (1 - Risk 50-74 years 1-dose series) 2021 SDOH Screening 10/02/2024 10/02/2023 Depression Screening 07/08/2025 07/08/2024, 07/08/20 COVID-19 Vaccine ( season) 2025 06/18/2022, 06/11/2021, 05/15/2021 Influenza Vaccine (#1) 2025 , 09/25/2020, 09/17/2019, Additional history exists Dental Oral Exam 10/29/2025 04/27/2025, 01/26/2020 Dental Prophylaxis 11/23/2025 05/23/2025 Dental X-Ray: Bitewings 04/28/2026 04/27/2025, 01/26 Colonoscopy 09/13/2026 09/13/2021, 09/13/2021 Colorectal Cancer Screening 09/13/2026 Tobacco Screening 10/20/2026 10/20/2025 Dental X-Ray: Full Mouth 06/01/2028 025, 04/27/2025, 01/26/2020 Lipid Panel 11/18/2028 11/18/2023, 06/01, 09/25/2020 DTaP/Tdap/Td Vaccines (3 - Td or Tdap) 11/17/2033 11/17/2023, 06/10/2012, 12/21/2009 Hepatitis B Vaccines Completed 09/17/2019, 09/03/2017, 12/25/2001 [...] patient's age to complete this topic Meningococcal B Vaccine Aged Out No l onger eligible based on patient's age to complete [...] 025 4:45 PM EST) No Sky Dorsey Procedures Procedure Name Priority [...] TREATMENT PLANNING Routine 10/20/2025 11:00 AM EST ORAL HYGIENE INSTRUCTIONS Routine 10/20/2025 11:00 AM EST Subgingival dental calculus Supragingival dental calculus Dental plaque CASE PRESENTATION, DETAILED AND EXTENSIVE TREATMENT PLANNING Routine 09/19/2025 8:00 AM EDT Dental caries 31 O RESIN-BASED COMPOSITE - 1 SURF, POSTERIOR Routine 09/19/2025 8:00 AM EDT Dental caries 30 O RESIN-BASED COMPOSITE - 1 SURF, POSTERIOR Routine 09/19/2025 8:00 AM EDT Dental caries NO CHARGE PROCEDURE Routine 07/26/2025 1 0:30 AM EDT PANORAMIC RADIOGRAPHIC IMAGE Routine 05/31/2025 8:00 AM EDT PROPHYLAXIS - ADULT Routine 05/23/2025 8 :00 AM EDT INTRAORAL - COMPLETE SERIES OF RADIOGRAPHIC IMAGES Routine 04/27/2025 9:00 AM EDT Periodontal disease Encounter for dental examination Dental calculus Dental caries Dental abscess PERIODIC ORAL EVALUATION - ESTABLISHED PATIENT Routine 04/27/2025 9:00 AM EDT Periodontal disease Encounter for dental examination Dental calculus Dental caries Dental abscess HEPATITIS C AB W/REFL TO HCV RNA, [...] AM EST) Hepatitis C Antibody Nonreactive Nonreactive [facility] Comment:Antibodies to HCV no t detected; does not exclude early acuteHCV infection. Blood Venous blood specimen / Unknown 11/18/2023 9:20 AM EST 11/18/2023 11:16 AM EST us Nneka Wylie MD LAB BLOOD ORDERABLES Final Result [facility] [address] [place] [phone] * HIV-1/2 Antigen and Antibodies, Fourth Generation, with Reflexes (11/18/2023 9:20 AM EST) HIV AB/AG Nonreactive Nonreactive [facility] Comment:HIV-1 p24 Ag and/or HIV-1/HIV-2 Ab not detected.A test result that is nonreactive does not exclude thepossibility of exposure to or infection with HIV-1 and/orHIV-2. Nonreactive results in this assay for individualswith prior exposure to HIV-1 and/or HIV-2 may be due toantigen and antibody levels that are below the limit ofdetection of this assay.The [employer] HIV Ag/Ab Combo assay result andsupplemental assay results should be interpreted inconjunction with the patient's clinical presentation,history and other laboratory results. If the results areinconsistent with clinical evidence, additional testing issuggested to confirm the result. Blood Venous blood specimen / Unknown 11/18/2023 9:20 AM EST 11/18/2023 11:16 AM EST Nneka Wylie MD LAB BLOOD ORDERABLES Final Result Performing Organization Address [facility] Co de Phone Number [facility] [address] [place] [phone] * Lipid Panel, Standard (11/18/2023 9:20 AM EST) Triglycerides 102 <150 mg/dL [facility] Comment:Desirable Triglyceri de: less than 150 mg/dLBorderline High Triglyceride 150-199 mg/dLHigh Triglyceride: 200-499 mg/dLVery High Triglyceride: greater than or equal to 5OO mg/dL Cholesterol 164 <200 mg/dL [facility] Comment:Desirable Cholestero l: less than 200 mg/dLBorderline High Cholesterol: 200-239 mg/dLHigh Cholesterol: greater than 239 mg/dL LDL Cholesterol Calculated 99 <100 mg/dL [facility] Comment:Desirable LDL: less than 100 mg/dLNear Optimal/Above Optimal LDL: 110- 129 mg/dLBorderline High LDL: 130-159 mg/dLHigh LDL: 160-189 mg/dLVery High LDL: greater than or equal to 190 mg/dL HDL Cholesterol 45 >40 mg/dL [facility] Comment:Desirable HDL: great er than 40 mg/dL Note: This HDL assay may give artificially low results in patients with liver disease. Blood Venous blood specimen / Unknown 11/18/2023 9:20 AM EST 11/18/2023 11:16 AM EST Nneka Wylie MD LAB BLOOD ORDERABLES Final Result Performing Organization Address [facility]/ZIP Co de Phone Number [facility] [address] [place] [phone] * Colonoscopy (09/13/2021) Colonoscopy tubular adenoma with Dr. Jiang Hiral Hester MD HEALTH MAINTENANCE Final Result from Last 3 Months or Most Recently Relevant to Health Maintenance Insurance [address] [facility] STAND ADULT Advance Directives Documents on File Type Date Recorded Patient Chief Scientist Expl anation Advance Directives and Living Will 02/10/2024 Health Care Proxy 02/06/24 Care Teams Automobile Service Station Manager Relationship Specialty Start Date End Date Dejan, MD Nneka [address] [place] [phone] PCP - General Family Medicine 12/01/18 Peace Larsen NP [address] [place] [address] [address] [place] [address] Urology 03/15/25
--- OUTSIDE RECORDS SUMMARY | 2025-10-24 08:47 | XMS_ITS | Encounter Summary ---
Author Organization [employer] Address [address] [facility] 7t [place] [address] Care Team Providers Care Tribal Judge Name Role Phone Nneka Wylie MD Primary Care Provider [phone]- [phone] Peace Larsen FLOW SPECIALIST Unavailable Reason for Visit * Reason Onset Date Comments Lab Orders 10/19/2025 Encounter Details Date Type Department Care Team ([facility] st Contact Info) Description 10/19/2025 Telephone [facility] [address] [place] [address] Nneka Wylie MD [address] [place] [address] Lab Orders Social History Tobacco Use Types Packs/Day Years [...] encounter Miscellaneous Notes * Telephone Encounter - Marnie Gonsalez MA - 10/19/2025 4:07 PM EST I spoke with the pt that he needs to do blood work before the appointment. documented in this encounter Plan of Treatment Upcoming Encounters Date Type Department Care Team (Late st Contact Info) Description 10/24/2025 9:45 AM EST Office Visit [facility] [address] [place] [address] Nneka Wylie MD [address] [place] [address] 11/04/2025 11:00 AM EST Office Visit [facility] ADULT DENT[facility] [address] [place] [address] Diane Wilson documented as of this encounter [...] documented as of this encounter Care Teams Tribal Judge Relationship Specialty Start Date End Date Nneka Wylie MD [address] [place] [phone] PCP - General Family Medicine 12/01/18 Peace Larsen NP [address] [place], [place] [phone] Urology 03/15/25 documented as of this encounter
--- OUTSIDE RECORDS SUMMARY | 2025-10-24 08:47 | XMS_ITS | Encounter Summary ---
Author Organization [employer] Address [address] [facility] 7t [place] [address] Care Team Providers Care Genetics Physician Name Role Phone Nneka Wylie MD Primary Care Provider [phone]- [phone] Peace Larsen MENTAL HEALTH AIDES TEACHER Unavailable Reason for Visit * Reason Onset Date Comments Appointment Request 10/13/2023 Encounter Details Date Type Department Care Team ([facility] Contact Info) Description 10/13/2023 Telephone [facility] [address] [place], [place] [phone] Nneka Wylie MD [address] [place] [address] Appointment Request Social History Tobacco Use Types [...] Physical with provider due to transportation issues. Quality Improvement Engineer tried to r/s appt no availability was found advised will place pt over on recall list for December. documented in this encounter Plan of Treatment Upcoming Encounters Date Type Department Care Team (Late st Contact Info) Description 10/24/2025 9:45 AM EST Office Visit [facility] [address] [place] [address] Nneka Wylie MD [address] [place] [address] 11/04/2025 11:00 AM EST Office Visit [facility] ADULT DENTAL [address] [place] [phone] Diane Wilson documented as of this encounter Visit Diagnoses Not on filedocumented in this encounter Care Teams Genetics Physician Relationship Specialty Start Date End Date Nneka Wylie MD [address] [place] [address] PCP - General Family Medicine 12/01/18 Peace Larsen NP [address] [place] [address] Urology 03/15/25 documented as of this encounter
[2025-10-24 11:51] LABS: Microalbum/Creatinine Ratio Ur 4.8 ug/mg cr (<30)
[2025-10-24 12:37] LABS: Folate 10.2 ng/mL (> or = 4.0); Vitamin B12 158 pg/mL (200-900)
[2025-10-24 16:07] LABS: Alanine Aminotransferase 47 U/L (0-40); Albumin Level 4.5 g/dL (3.5-5.0); Alkaline Phosphatase 96 U/L (39-117); Anion Gap 11 (12-20); Aspartate Amino Transferase 37 U/L (5-37); Blood Urea Nitrogen 13 mg/dL (9-16); Calcium 9.9 mg/dL (8.4-10.2); Carbon Dioxide 28 mmol/L (22-29); Chloride 104 mmol/L (96-108); Cholesterol 182 mg/dL (<200); Estimated Glomerular Filt Rate 53; HDL Cholesterol 44 mg/dL (>40); Potassium 4.5 mmol/L (3.3-5.1); Sodium 138 mmol/L (135-145); Total Protein 7.3 g/dL (6.5-8.0); Triglycerides 138 mg/dL (<150)
== END 2025-10-24 08:32 | disposition home or self-care (01) ==
LOC: HO.HHCL 08:31
PROVIDERS: PCP Family Medicine; Visit Provider Family Medicine
DX: I10 Essential (primary) hypertension (principal); E78.5 Hyperlipidemia, unspecified; E53.9 Vitamin B deficiency, unspecified; R73.03 Prediabetes
CPT/HCPCS: 36415; 80048; 80061; 80076; 82043; 82570; 82607; 82746; 83036

== ENCOUNTER 2025-11-22 15:03 | Outpatient (AMB) | payer MEDICAID, SELFPAY ==
--- NOTE | 2025-11-22 15:07 | A.OFFVIS_ITS ---
Vital Signs 3 11/22/25 15:11 Height 5 ft 8 in Weight 214 lb BMI 32.5 BP 152/74 H Blood Pressure Location Rt brachial Position Sitting Pulse 81 Intake Visit Reasons: Lipoma Intake Note: Patient referred by PCP Dr. Wylie for recurrent cyst on Mid upper post back. [place] [facility] [place]. Patient c/o: painful with pressure. Prospecting Driller Required: Yes Prospecting Driller Language: Sign Languages (macro) Information Interpreted: non-clinical & clinical (son John ) Allergies fish derived (fish) Allergy (Verified 08/30/24 11:17) Hives sodium chloride Adverse Reaction (Intermediate, Verified 08/30/24 11:17) tachycardia Medication List - Last Reconciled 11/22/25 by Chalo Walton MD carvedilol 12.5 mg PO BID clotrimazole-betamethasone 1-0.05 % 1 appl topical BID 4 weeks hydrochlorothiazide 25 mg PO DAILY lisinopril 40 mg PO DAILY mecobalamin (vitamin B12) mcg IM .monthly methylcellulose (laxative) (Citrucel) 500 mg PO BID spironolactone 50 mg PO DAILY HPI Comments Details: Patient reports longstanding history of 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 He had it excised years ago but it is obviously recurred. He also reports right back and left axillary skin tags he wishes to have removed at the same time. [facility] Medical History (Updated 11/22/25 @ 15:33 by Chalo Walton MD) HTN (hypertension) Family History Sister Colon polyps Mother Asthma Social History Household Members Other:: - no kids Alcohol intake: never Patient Tobacco Use Status: Never used Tobacco Current occupational status: unemployed and retired Review of Systems Const Details: Patient is deaf and uses an [place] sign language. This is a chronic condition for him. Physical Exam Vital Signs: Last Vital Signs Pulse 81 11/22/25 15:11 BP 152/74 H 11/22/25 15:11 BMI result Body Mass Index 32.5 Const General: cooperative, healthy appearing and comfortable Nutritional Appearance: average body habitus HEENT Head: Yes normal to inspection, Yes normocephalic and Yes atraumatic Neck Neck: Yes normal visual inspection Chest Chest palpation & inspection: normal inspection of the chest Chest/axillae images: 2 1. Pedunculated skin tag x2 Resp Effort & Inspection: normal respiratory effort Cardio Rate: regular rate Rhythm: regular rhythm GI Inspection: Yes normal to inspection Back/Spine/Pelvis Back/spine/pelvis image: 2 1. Recurrent soft tissue mass for the past cm in diameter consistent with lipoma 2. Pedunculated skin tag Assessment & Plan Assessment & Plan (1) Skin tag: Code(s): L91.8 - Other hypertrophic disorders of the skin Category: Medical Plan: I told the patient that I felt excisional biopsy was reasonable. I reviewed with him the risks are involved. These include but are not limited to bleeding, infection, pain, recurrence and unsightly scarring. He indicated that he understood. He indicated me that he considered his options. He indicated that he understood and accepted the risks of surgery and still wished to proceed with operative intervention. (2) Lipoma: Code(s): D17.9 - Benign lipomatous neoplasm, unspecified Category: Medical Plan: I told the patient that I felt excisional biopsy was reasonable. I reviewed with him the risks are involved. These include but are not limited to bleeding, infection, pain, recurrence and unsightly scarring. He indicated that he understood. He indicated me that he considered his options. He indicated that he understood and accepted the risks of surgery and still wished to proceed with operative intervention. Coding Level of Care Code New Pt Level 3 (77947) Diagnoses Skin tag L91.8 Lipoma D17.9 Time Spent (min) 30 Comment Record review patient visit and coordination of care time
[2025-11-22 15:11] VITALS: BP 152/74; PULSE 81; BMI 32.5
--- OUTSIDE RECORDS SUMMARY | 2025-11-22 16:20 | XMS_ITS | Clinical Summary ---
Author Organization [employer] Address [address] [facility] [address] [place] [address] Care Team Providers Care Assistant Producer Name Role Phone Nneka Wylie MD Primary Care Provider [phone] Peace Larsen NP Unavailable Allergies Active Allergy Reactions Criticality Noted Date Comments Fish Allergy 04/27/2025 Sodium Chloride 04/27/2025 Medications amLODIPine (Norvasc) 5 MG tabletIndicatio ns:Primary hypertension Take 1 tablet (5 mg) by mouth Once per day. 90 tablet 2 025 Active carvedilol (Coreg) 25 MG tabletIndicatio ns:Primary hypertension Take 1 tablet (25 mg) by mouth 2 times daily. 180 tablet 3 025 Active hydroCHLOROthia zide (HYDRODiuril) 25 MG tabletIndicatio ns:Primary hypertension Take 1 tablet (25 mg) by mouth Once per day. 90 tablet 3 025 Active lisinopril 40 MG tabletIndicatio ns:Primary hypertension Take 1 tablet (40 mg) by mouth Once per day. 90 tablet 3 025 Active spironolactone (Aldactone) 50 MG tabletIndicatio ns:Primary hypertension Take 1 tablet (50 mg) by mouth Once per day. 90 tablet 3 025 Active clotrimazole-be tamethasone (Lotrisone) creamIndication s:Dermatitis Apply topically if needed each day (rash). 15 g 1 5 11:34 AM EST 025 Active Blood Pressure kitIndications: Primary hypertension Check blood pressure twice a week or prn 1 kit 025 Active cyanocobalamin (Vitamin B-12) 1000 MCG/ML injection Inject 1 mL (1,000 mcg) into the muscle every 30 (thirty) days. 1 mL 11 Active cyanocobalamin (Vitamin B-12) 1000 MCG/ML injection Inject 0.1 mL (100 mcg) into the muscle every 30 (thirty) days. Bring to your appointment at the office to have it administered 1 mL 11 2:43 PM EST Active carvedilol (Coreg) 25 MG tabletIndicatio ns:Resistant hypertension TAKE 1 TABLET BY MOUTH TWICE DAILY AT NOON AND BEDTIME 180 tablet 2 2024 Discontinued(R eorder (will not trigger notification to Pharmacy)) hydroCHLOROthia zide (HYDRODiuril) 25 MG tabletIndicatio ns:Resistant hypertension TAKE 1 TABLET BY MOUTH EVERYDAY AT NOON 90 tablet 2 2024 Discontinued(R eorder (will not trigger notification to Pharmacy)) spironolactone (Aldactone) 50 MG tabletIndicatio ns:Resistant hypertension TAKE 1 TABLET BY MOUTH EVERYDAY AT NOON 90 tablet 2 2024 Discontinued(R eorder (will not trigger notification to Pharmacy)) amLODIPine (Norvasc) 5 MG tabletIndicatio ns:Resistant hypertension TAKE 1 TABLET BY MOUTH EVERYDAY AT NOON 90 tablet 2 025 2024 Discontinued(R eorder (will not trigger notification to Pharmacy)) lisinopril 40 MG tabletIndicatio ns:Resistant hypertension TAKE 1 TABLET BY MOUTH EVERYDAY AT NOON 90 tablet 2 025 2024 Discontinued(R eorder (will not trigger notification to Pharmacy)) clotrimazole-be tamethasone (Lotrisone) cream APPLY TO AFFECTED AREA 2 TIMES A DAY FOR 4 WEEKS. APPLY THIN COAT 2 TIMES PER DAY 024 2024 Discontinued(R eorder (will not trigger notification to Pharmacy)) clotrimazole (Lotrimin) 1 % cream APPLY TOPICALLY TWICE A WEEK FOR 4 WEEKS 30 g 2 025 2024 Discontinued(M ed list cleanup (will not trigger notification to Pharmacy)) Hospital, Clinic, or Other Facility Administered Medication Ordered Dose Route Frequency Start Date End Date Status cyanocobalamin (Vitamin B-12) injection 1,000 mcgIndications:Vitamin B deficiency 1000 mcg IM Every 30 days 10/26/2025 09/21/2026 Active Active Problems Problem Noted Date Diagnosed Date Dental root caries 07/05/2025 Dental calculus 07/05/2025 Dental caries 05/31/2025 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 Ok to use something that is more PH balanced like dove -A1C was WNL -Trialed Nystatin, still having pain -referred to Urology 07/08/24 -seen by urology 08/30/24 dx with ballinitis and prescribed clotrimazole betamethazole cream -note from Enrico Larsen DRIER OPERATOR with urology from 03/15/25 reviewed, no changes Assessment & Plan (07/08/2024 10:30 AM EDT): Dermatitis vs Candidiasis - Advised to stop using Stormy spring soap. Ok to use something that is more PH balanced like dove -A1C was WNL -Trialed Nystatin, still having pain -referred to Urology 07/08/24 Pre-diabetes 02/06/2024 Overview (07/08/2024): Lab Results Component Value Date HGBA1C 5.8 02/06/2024 GLUCOSE 98 11/18/2023 -Stop Sprite and change to water -ordered A1C 07/08/24 Assessment & Plan (10/24/2025 10:42 AM EST): Lab Results Component Value Date HGBA1C 5.8 02/06/2024 GLUCOSE 98 11/18/2023 -Stop Sprite and change to water -ordered A1C 07/08/24 Orders: Hemoglobin A1c; Future Assessment & Plan (07/08/2024 10:40 AM EDT): Lab Results Component Value Date HGBA1C 5.8 02/06/2024 GLUCOSE 98 11/18/2023 -Stop Sprite and change to water -ordered A1C 07/08/24 Assessment & Plan (02/06/2024 10:46 AM EST): -HbA1C was 5.8 on 02/06/2024 -Stop Sprite and change to water Lipoma 11/17/2023 Assessment & Plan (10/24/2025 10:42 AM EST): Causing discomfort. Growing in sizer. Referral to surgery placed 10/24/25 Orders: Referral to General Surgery; Future Other specified health status 10/13/2023 Overview (10/24/2025): -next physical exam due after 10/24/26 -eye care facilitated by [facility] -dental home established -health care proxy filed 02/06/24 Assessment & Plan (10/24/2025 10:42 AM EST): -next physical exam due after 10/24/26 -eye care facilitated by [facility] -dental home established -health care proxy filed 02/06/24 Assessment & Plan (07/08/2024 10:27 AM EDT): -next physical exam due 12/01/24 -eye care facilitated by [facility] 07/2023 -dental home unknown, not established yet. Encouraged getting established. 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 Please make note of this in any referrals. Assessment & Plan (10/24/2025 10:42 AM EST): -Patient needs japanese interpreter for all visits. Please make note of this in any referrals. Assessment & Plan (07/08/2024 10:21 AM EDT): -Patient needs japanese interpreter for all visits. Please make note of this in any referrals. Assessment & Plan (11/17/2023 11:42 AM EST): -Patient needs japanese interpreter for all visits. Please make note of this in any referrals. . Mild intermittent asthma 09/01/2017 Overview (07/07/2024): -well controlled on albuterol prn Assessment & Plan (10/24/2025 10:42 AM EST): -well controlled on albuterol prn Assessment & Plan (07/08/2024 10:29 AM EDT): -well controlled on albuterol prn Vitamin B deficiency 11/03/2014 Assessment & Plan (10/24/2025 10:42 AM EST): Orders: Vitamin B12/Folate, Serum Panel; Future Backache 06/10/2012 Overview (02/06/2024): MRI was performed at [facility] on 01/22/19, showing transitional lumbosacral anatomy and L-side neural foraminal narrowing at L5 nerve root. Seen by Dr. Palma, neurosurgery, s/p cortisone injection with good response but symptoms returned. He had repeat injection [id number] -MRI [id number] revealed lumbar spondylosis at L5-S1, stable compared [...] 10:31 AM EDT): MRI was performed at [facility] on 01/22/19, showing transitional lumbosacral anatomy and L-side neural foraminal narrowing at L5 nerve root. Seen by Dr. Palma, neurosurgery, s/p cortisone injection with good response but symptoms returned. He had repeat injection [id number] -MRI [id number] revealed lumbar spondylosis at L5-S1, stable compared [...] 10:40 AM EST): MRI was performed at [facility] on 01/22/19, showing transitional lumbosacral anatomy and L-side neural foraminal narrowing at L5 nerve root. Seen by Dr. Palma, neurosurgery, s/p cortisone injection with good response but symptoms returned. He had repeat injection [id number] -MRI [id number] revealed lumbar spondylosis at L5-S1, stable compared [...] 11:43 AM EST): MRI was performed at [facility] on 01/22/19, showing transitional lumbosacral anatomy and L-side neural foraminal narrowing at L5 nerve root. Seen by Dr. Palma, neurosurgery, s/p cortisone injection with good response but symptoms returned. He had repeat injection [id number] -MRI [id number] revealed lumbar spondylosis at L5-S1, stable compared to 2020 Likely musculoskeletal. Non-focal, normal motor exam without [...] with our ALIA Collins Assessment & Plan (10/24/2025 10:42 AM EST): -Blood pressure is at goal -Continue lifestyle modifications -Continue current medications -Follows with [facility] with our ALIA Collins -check home blood pressure and return with readings in 3 months Orders: Albumin, Random Urine W/Creatinine; Future Basic Metabolic Panel; Future amLODIPine (Norvasc) 5 MG tablet; Take 1 tablet (5 mg) by mouth Once per day. carvedilol (Coreg) 25 MG tablet; Take 1 tablet (25 mg) by mouth 2 times daily. hydroCHLOROthiazide (HYDRODiuril) 25 MG tablet; Take 1 tablet (25 mg) by mouth Once per day. lisinopril 40 MG tablet; Take 1 tablet (40 mg) by mouth Once per day. spironolactone (Aldactone) 50 MG tablet; Take 1 tablet (50 mg) by mouth Once per day. Blood Pressure kit; Check blood pressure twice a week or prn Assessment & Plan (07/08/2024 10:21 AM EDT): [...] vs Candidiasis - Advised to stop using Stormy spring soap. Ok to use something that is more PH balanced like dove -Will check HGBA1C -Trial of Nystatin Assessment & Plan (02/06/2024 10:40 AM EST): Dermatitis vs Candidiasis -Advised to stop using Stormy spring soap. Ok to use something that [...] Encounters Date Type Department Care Team Description 11/04/2025 11:00 AM EST Office Visit [facility] [address] [place] [phone] Diane Wilson Subgingival dental calculus (Primary Dx); Supragingival dental calculus; Periodontal disease 11/02/2025 3:00 PM EST Nurse Only [facility] [address] [place] [address] Valentina Storm, RICKEY Vitamin B deficiency 11/02/2025 Travel 10/25/2025 Results Follow-Up [facility] [address] [place] [phone] Nneka Wylie MD Albumin, Random Urine W/Creatinine, Hepatic Function Panel, Lipid Panel, Standard, Additional followed-up results: 3 10/25/2025 Orders Only [facility] [address] [place] [phone] Nneka Wylie MD Vitamin B deficiency (Primary Dx) 10/24/2025 9:45 AM EST Office Visit [facility] [address] [place] [phone] Nneka Wylie MD Primary hypertension (Primary Dx); Pre-diabetes; Dyslipidemia; Mild intermittent asthma without complication; Bilateral deafness; Dermatitis; Lipoma, unspecified site; Encounter for immunization; Vitamin B deficiency; Other specified health status 10/24/2025 Travel 10/21/[address] [phone] Nneka Wylie MD CHART PREP 10/20/2025 11:00 AM EST Office Visit [facility] [address] [place] [phone] Diane Wilson Subgingival dental calculus (Primary Dx); Supragingival dental calculus; Dental plaque 10/19/[address] [phone] Nneka Wylie MD Lab Orders 10/19/[address] [phone] Nneka Wylie MD 09/19/2025 8:00 AM EDT Office Visit [facility] [address] [place] [phone] Gina Fraser, DDS Dental caries (Primary Dx) from Last 3 Months Immunizations Immunization Administration Dates Next Due Hep B, adult 09/17/2019,09/03/2017,12/25/2001 Influenza injectable quadriv alent IIV4 with preservative 08/14/2018,09/03/2017,08/21/2016 Influenza injectable quadriv alent preservative free 11/17/2023,09/25/2020,09/17/2019,09/25 Influenza, IIV3, injectable 11/03/2014, 2 Influenza, Split (incl. khushi fied surface antigen) 11/25/2012 Influenza, seasonal, injecta ble, preservative free 10/24/2025 Moderna Covid-19 Vaccine 12+ 06/18/2022,06/11/20 21,05/15/2021 Pfizer Covid-19 Vaccine 12+ 10/24/2025 Pneumococcal Conjugate PCV 20 02/06/2024 Pneumococcal Polysaccharide PPSV23 06/10/2012 TD (adult), 2 Lf tetanus tox oid, preservative free, adsorbed 12/21/2009 Tdap 11/17/2023,06/10/2012 Zoster, Recombinant 04/21/2024,02/06/2024 Family History Medical History Relation Name Comments Diabetes Mother Hypertension Mother Relation Name Status Comments Mother Social History Tobacco Use Types Packs/Day Years Used Date Smoking Tobacco: Never Passive Smoke Exposure: Never Smokeless Tobacco: Never Tobacco Cessation:Counseling Given: Not Answered Depression Answer Date Recorded Patient Health Questionnaire-9 Score 0 10/24/2025 Patient Health Questionnaire-9 Score 0 10/24/2025 Last PHQ-9: Questionnaire Data Not on file 1 12/24/2024 Housing Stability Answer Date Recorded What is your housing situation today? I have charles armando 10/24/[address] you li ve. Do you have problems with any of the following? None of the above 10/24/2025 Food Insecurity Answer Date Recorded Within the past 12 months, y ou worried that your food would run out before you got money to buy more: Never True 10/24/2025 Within the past 12 months,th e food you bought just didn't last and you didn't have enough money to get more: Never True Transportation Answer Date Recorded In the past 12 months, has l ack of transportation kept you from medical appts, meetings, work or from getting things needed for daily living? No 10/24/2025 Utilities Answer Date Recorded In the past 12 months, has t he electric, gas, oil or water company threatened to shut off services in your home? No 10/24/2025 Depression Answer Date Recorded Patient Health Questionnaire-2 Score 0 10/24/2025 Internet Access Answer Date Recorded Internet Access Q1 No 10/24/2025 Internet Access Q2 I do not want or need it 10/02 Sex and Gender Information Value Date Recorded Sex Assigned at Male 09/30/2022 10:16 AM EDT Legal Sex Male 10:16 AM EDT Gender Identity Male 09/30/2022 10:16 AM EDT Sexual Orientation Choose not to disclose 2021 10:16 AM EDT Last Filed Vital Signs Vital Sign Reading Time Taken Comments Blood Pressure 162/90 11/04/2025 10:59 AM EST Pulse 74 10/24/2025 9:49 AM EST Temperature 37.2 C (98.9 F) 10/24/2025 9:49 AM EST Respiratory Rate 20 10/24/2025 9:49 AM EST Oxygen Saturation 94% 10/24/2025 9:49 AM EST Inhaled Oxygen Concentration - - Weight 110 kg (241 lb 12.8 oz) 10/24/2025 9:49 A M EST Height 175.3 cm (5' 9 ) 08/05/2023 10:48 AM EDT Body Mass Index 35.71 08/05/2023 10:48 AM EDT Plan of Treatment Upcoming Encounters Date Type Department Care Team (Late st Contact Info) Description 12/07/2025 3:00 PM EST Nurse Only [facility] [address] [place] [phone] 01/23/2026 10:45 AM EST Office Visit [facility] [address] [place] [phone] Nneka Wylie MD [address] [place] [phone] 05/08/2026 9:30 AM EDT Office Visit [facility] [address] [place] [phone] Diane Wilson Health Maintenance Due Date Last Done Comments CT Colonography 1971 FIT DNA/Cologuard 1971 FIT 1971 FOBT 1971 Sigmoidoscopy 1971 RSV Patients and Patients Aged 60 years or older (1 - Risk 50-74 years 1-dose series) 2021 Dental Oral Exam 10/29/2025 04/27/2025, 01/26/2020 Dental Prophylaxis 11/23/2025 05/23/2025 Dental X-Ray: Bitewings 04/28/2026 04/27/2025, 01/26 Colonoscopy 09/13/2026 09/13/2021, 09/13/2021 Colorectal Cancer Screening 09/13/2026 Alcohol/Substance Use Screening 10/24/2026 10/24/2025 Depression Screening 10/24/2026 10/24/2025, 10/24/20 Diabetes: Hemoglobin A1C 10/24/2026 10/24/2025, 03/0 07/2024 Disability Screening 10/24/2026 10/24/2025 SDOH Screening 10/24/2026 10/24/2025 Tobacco Screening 10/24/2026 10/24/2025 Dental X-Ray: Full Mouth 06/01/2028 025, 04/27/2025, 01/26/2020 Lipid Panel 10/24/2030 10/24/2025, 10/31, 06/25/2021, Additional history exists DTaP/Tdap/Td Vaccines (3 - Td or Tdap) 11/17/2033 11/17/2023, 06/10/2012, 12/21/2009 Hepatitis B Vaccines Completed 09/17/2019, 09/03/2017, 12/25/2001 HIV Screening Completed 11/18/2023 Hepatitis C Screening Completed 11/18/2023 Pneumococcal Vaccine: 50+ Years Completed 02/06/2024, 06/10/2012 Zoster Vaccines Completed 04/21/2024, 02/06/2024 COVID-19 Vaccine Completed 10/24/2025, , 06/11/2021, Additional history exists Influenza Vaccine Completed 10/24/2025, , 09/25/2020, Additional history exists HIB Vaccines Aged Out No longer eligi [...] Author Blood Pressure < 140/90 Blood Pressure 162/90( 025 10:59 AM EST) No Sky Dorsey Procedures Procedure Name Priority Date/Time Associated Diagnosis Comments LR PERIODONTAL SCALING AND ROOT PLANING - 4 OR MORE TEETH PER QUADRANT Routine 11/04/2025 11:00 AM EST Subgingival dental calculus Supragingival dental calculus Periodontal disease CASE PRESENTATION, DETAILED AND EXTENSIVE TREATMENT PLANNING Routine 11/04/2025 11:00 AM EST ORAL HYGIENE INSTRUCTIONS Routine 11/04/2025 11:00 AM EST Subgingival dental calculus Supragingival dental calculus Periodontal disease UR PERIODONTAL SCALING AND ROOT PLANING - 4 OR MORE TEETH PER QUADRANT Routine 11/04/2025 11:00 AM EST Subgingival dental calculus Supragingival dental calculus Periodontal disease VITAMIN B12/FOLATE, SERUM PANEL Routine 10/24/2025 8:37 AM EST Vitamin B deficiency BASIC METABOLIC PANEL Routine 10/24/2025 8:37 AM EST Primary hypertension HEMOGLOBIN A1C Routine 10/24/2025 8:37 AM EST Pre-diabetes LIPID PANEL, STANDARD Routine 10/24/2025 8:37 AM EST Dyslipidemia HEPATIC FUNCTION PANEL Routine 10/24/2025 8:37 AM EST Dyslipidemia ALBUMIN, RANDOM URINE W/CREATININE Routine 10/24/2025 8:37 AM EST Primary hypertension UL PERIODONTAL SCALING AND ROOT PLANING - [...] Routine 09/19/2025 8:00 AM EDT Dental caries PANORAMIC RADIOGRAPHIC IMAGE Routine 05/31/2025 8:00 AM [...] Routine screening for STI (sexually transmitted infection) HM COLONOSCOPY Routine 09/13/2021 from Last 3 Months or Most Recently Relevant to Health Maintenance Results * (ABNORMAL) Vitamin B12/Folate, Serum Panel (10/24/2025 8:37 AM EST) Vitamin B12 158(L) 200 - 900 pg/mL [facility] Comment:NORMAL 200-900 PG/ML INDETERMINATE 160-199 PG/ML DEFICIENT < 160 PG/ML Folate 10.2 > or = 4.0 ng/mL [facility] Comment:Reference Values:> o r = 4.0 ng/mL< 4.0 ng/mL suggests folate deficiency Methotrexate, aminopterin and folinic acid(leucovorin) are chemotherapeutic agents whose molecularstructures are similar to folate; therefore, the Architectfolate assay cannot be used for patients using these drugs. Blood Venous blood specimen / Unknown 10/24/2025 8:37 AM EST 10/24/2025 11:01 AM EST Nneka Wylie MD LAB BLOOD ORDERABLES Final Result Performing Organization Address [facility] Co de Phone Number [facility] [address] [place] [phone] * Albumin, Random Urine W/Creatinine (10/24/2025 8:37 AM EST) Creatinine, Urine 103.04 mg/dL [facility] Microalbumin Urine 5.0 mg/L [facility] Microalbum Creatinine Ratio Ur 4.8 <30 ug/mg cr [facility] Comment:Albumin/Creatinine R atio Reference Ranges: Normal: < 30 ug/mg creatinine Microalbuminuria: 30 - 300 ug/mg creatinineClinical Albuminuria: > 300 ug/mg creatinine Urine 10/24/2025 8:37 AM EST 10/24/2025 11:04 AM EST Nneka Wylie MD LAB URINE ORDERABLES Final Result Performing Organization Address [facility] Phone Number [facility] [address] [place] [phone] * Hemoglobin A1c (10/24/2025 8:37 AM EST) Hemoglobin A1c 5.8 <6.0 % [facility] Comment:Hemoglobin A1C Refer ence Range Adults: 4.8 - 6.0 % Non diabetic: < 6.0 % Goal: < 7.0 %Additional Action Suggested: > 8.0 %Note: Hemoglobin A1c results are invalid for patients with abnormal amounts of HbF. Blood transfusions may impact the HbA1c concentration in the patient sample. Estimated Average Glucose 120 mg/dL [facility] Comment:eAG = Estimated ave rage glucose which is %A1C expressed asaverage glucose, using the formula of the J9A-[id number] Glucose study (ADAG), Diabetes Care, Vol.31,#8,Jul. 2007 Blood Venous blood specimen / Unknown 10/24/2025 8:37 AM EST 10/24/2025 11:01 AM EST Nneka Wylie MD LAB BLOOD ORDERABLES Final Result Performing Organization Address [facility]/ZIP Co de Phone Number [facility] [address] [place] [phone] * (ABNORMAL) Hepatic Function Panel (10/24/2025 8:37 AM EST) Bilirubin, Total 0.5 0.0 - 1.0 mg/dL [facility] Bilirubin, Direct 0.2 0.0 - 0.5 mg/dL [facility] Aspartate Amino Transferase 37 5 - 37 U/L [facility] Alanine Aminotransferase 47(H) 0 - 40 U/L [facility] Total Protein 7.3 6.5 - 8.0 g/dL [facility] Albumin Level 4.5 3.5 - 5.0 g/dL [facility] Alkaline Phosphatase 96 39 - 117 U/L [facility] Blood Venous blood specimen / Unknown 10/24/2025 8:37 AM EST 10/24/2025 11:01 AM EST Nneka Wylie MD LAB BLOOD ORDERABLES Final Result Performing Organization Address [facility]/ZIP Co de Phone Number [facility] [address] [place] [phone] * (ABNORMAL) Lipid Panel, Standard (10/24/2025 8:37 AM EST) Triglycerides 138 <150 mg/dL [facility] Comment:Desirable Triglyceri de: less than 150 mg/dLBorderline High Triglyceride 150-199 mg/dLHigh Triglyceride: 200-499 mg/dLVery High Triglyceride: greater than or equal to 5OO mg/dL Cholesterol 182 <200 mg/dL [facility] Comment:Desirable Cholestero l: less than 200 mg/dLBorderline High Cholesterol: 200-239 mg/dLHigh Cholesterol: greater than 239 mg/dL LDL Cholesterol Calculated 111(H) <100 mg/dL [facility] Comment:Desirable LDL: less than 100 mg/dLNear Optimal/Above Optimal LDL: 110- 129 mg/dLBorderline High LDL: 130-159 mg/dLHigh LDL: 160-189 mg/dLVery High LDL: greater than or equal to 190 mg/dL HDL Cholesterol 44 >40 mg/dL [facility] Comment:Desirable HDL: great er than 40 mg/dL Note: This HDL assay may give artificially low results in patients with liver disease. Blood Venous blood specimen / Unknown 10/24/2025 8:37 AM EST 10/24/2025 11:01 AM EST Nneka Wylie MD LAB BLOOD ORDERABLES Final Result [facility] [address] [place] [phone] * (ABNORMAL) Basic Metabolic Panel (10/24/2025 8:37 AM EST) Sodium 138 135 - 145 mmol/L [facility] Potassium 4.5 3.3 - 5.1 mmol/L [facility] Chloride 104 96 - 108 mmol/L [facility] Carbon Dioxide 28 22 - 29 mmol/L [facility] Anion Gap 11(L) 12 - 20 [facility] Urea Nitrogen (BUN) 13 9 - 16 mg/dL [facility] Creatinine, Serum 1.40 0.5 - 1.4 mg/dL [facility] Estimated Glomerular Filt Rate 53 [facility] Comment:Chronic Kidney Disea se: Estimated GFR < 60 mL/min/[id number] Kidney Disease: Estimated GFR < 15 mL/min/1.73m2 Glucose 101 60 - 115 mg/dL [facility] Calcium 9.9 8.4 - 10.2 mg/dL [facility] Blood Venous blood specimen / Unknown 10/24/2025 8:37 AM EST 10/24/2025 11:01 AM EST Nneka Wylie MD LAB BLOOD ORDERABLES Final Result Performing Organization Address [facility] [facility] Co de Phone Number [facility] [address] [place] [address] [phone] * Hepatitis C Antibody with Reflex to HCV, RNA, Quantitative, Real-Time PCR (11/18/2023 9:20 AM EST) Hepatitis C Antibody Nonreactive Nonreactive [facility] Comment:Antibodies to HCV no t detected; does not exclude early acuteHCV infection. Blood Venous blood specimen / Unknown 11/18/2023 9:20 AM EST 11/18/2023 11:16 AM EST Nneka Wylie MD LAB BLOOD ORDERABLES Final Result Performing Organization Address [facility] de Phone Number [facility] [address] [place] [phone] * HIV-1/2 Antigen and Antibodies, Fourth Generation, with Reflexes (11/18/2023 9:20 AM EST) HIV AB/AG Nonreactive Nonreactive [facility] Comment:HIV-1 p24 Ag and/or HIV-1/HIV-2 Ab not detected.A test result that is nonreactive does not exclude thepossibility of exposure to or infection with HIV-1 and/orHIV-2. Nonreactive results in this assay for individualswith prior exposure to HIV-1 and/or HIV-2 may be due toantigen and antibody levels that are below the limit ofdetection of this assay.The [employer] HIV Ag/Ab Combo assay result andsupplemental assay results should be interpreted inconjunction with the patient's clinical presentation,history and other laboratory results. If the results areinconsistent with clinical evidence, additional testing issuggested to confirm the result. Blood Venous blood specimen / Unknown 11/18/2023 9:20 AM EST 11/18/2023 11:16 AM EST Nneka Wylie MD LAB BLOOD ORDERABLES Final Result [facility] [address] [place] [address] [phone] * Colonoscopy (09/13/2021) Colonoscopy tubular adenoma with Dr. 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
--- OUTSIDE RECORDS SUMMARY | 2025-11-22 16:20 | XMS_ITS | Encounter Summary ---
Author Organization [employer] Address [address] [facility] [address] [place] [address] Care Team Providers Care Plant Wrapper Name Role Phone Nneka Wylie MD Primary Care Provider +1- [phone] Peace Larsen DERRICK FOLLOWER Unavailable Reason for Visit * Reason Onset Date Comments Nurse Triage 07/29/2023 Encounter Details Date Type Department Care Team ([facility] st Contact Info) Description 07/29/2023 Telephone [facility] [address], [place] [phone] Nneka Wylie MD [address] [place] [address] Nurse Triage Social History Tobacco Use Types [...] 07/29/2023 2:43 PM EDT [place] [id number] Pt reports 3 weeks ago went to laundry mat to wash clothes. After Pt washed the clothing , when Pt started wearing the clothes Pt started having some itchiness in the groin, upper thigh, penis area. Pt reports that this itchiness has increased, rashy red area with little red dots that are flat not raised. Pt is offered to come to [facility] today to be seen by provider and [...] Description 12/07/2025 3:00 PM EST Nurse Only [facility] [address] [place] [phone] 01/23/2026 10:45 AM EST Office Visit [facility] [address] [place] [phone] Nneka Wylie MD [address] [place] [phone] 05/08/2026 9:30 AM EDT Office Visit [facility] ADULT DENTAL [address] [place] [phone] Diane Wilson documented as of this encounter Visit Diagnoses Not on filedocumented in this encounter Care Teams Plant Wrapper Relationship Specialty Start Date End Date Nneka Wylie MD [address] [place] [phone] PCP - General Family Medicine 12/01/18 Peace Larsen NP [address] [place] [address] Drive [address] [place] [address] Urology 03/15/25 documented as of this encounter
--- OUTSIDE RECORDS SUMMARY | 2025-11-22 16:20 | XMS_ITS | Encounter Summary ---
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 Encounter Details Date Type Department Care Team ([facility] st Contact Info) Description 07/22/2025 Telephone [facility] MED[facility]INE [address] [place] [address] Nneka Wylie MD [address] [place] [address] Social History Tobacco Use Types Packs/Day Years [...] 3:00 PM EST Nurse Only [facility] [address] [place] [phone] 01/23/2026 10:45 AM EST Office Visit [facility] MED[facility]INE [address] [place] [address] Nneka Wylie MD [address] [place] [address] 05/08/2026 9:30 AM EDT Office Visit [facility] ADULT DENTAL [address] [place] [address] Diane Wilson documented as of this encounter Goals Goal Patient Goal Type Associated Problems Recent Progress Patient-Stated? Author Blood Pressure < 140/90 Blood Pressure 162/90( 025 10:59 AM EST) No Sky Dorsey documented as of this encounter Visit Diagnoses Not on filedocumented in this encounter Additional Health Concerns Assessment Noted Time PHQ-9 Depression Total Score: 2 07/08/20 24 10:57 AM EDT documented as of this encounter Care Teams Development Spec Relationship Specialty Start Date End Date Nneka Wylie MD [address] [place] [address] PCP - General Family Medicine 12/01/18 Peace Larsen NP [address] [place] [address] Urology 03/15/25 documented as of this encounter
--- OUTSIDE RECORDS SUMMARY | 2025-11-22 16:20 | XMS_ITS | Encounter Summary ---
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 documented in this encounter Plan of Treatment Upcoming Encounters Date Type Department Care Team (Late st Contact Info) Description 12/07/2025 3:00 PM EST Nurse Only [facility] [address] [place] [address] 01/23/2026 10:45 AM EST Office Visit [facility] [address] [place] [address] Nneka Wylie MD [address] [place] [address] 05/08/2026 9:30 AM EDT Office Visit [facility] ADULT DENTAL [address] [place] [phone] Diane Wilson documented as of this encounter Visit Diagnoses Not on filedocumented in this encounter Care Teams Chip Bin Operator Relationship Specialty Start Date End Date Nneka Wylie MD [address] [place] [address] PCP - General Family Medicine 12/01/18 Peace Larsen NP [address] [facility] [address] [facility] [address] [place] [address] Urology 03/15/25 documented as of this encounter
== END 2025-11-22 15:26 | disposition home or self-care (01) ==
LOC: HO.HGS 15:04
PROVIDERS: PCP Family Medicine; Visit Provider Surgery
DX: L91.8 Other hypertrophic disorders of the skin (principal); D17.9 Benign lipomatous neoplasm, unspecified
CPT/HCPCS: 99203

== ENCOUNTER → 2025-11-22 15:03 | Outpatient (BNVA) | payer MEDICAID, SELFPAY | PROVIDERS: PCP Family Medicine; Visit Provider Surgery | DX: L91.8 Other hypertrophic disorders of the skin (principal); D17.9 Benign lipomatous neoplasm, unspecified | CPT/HCPCS: 99202 ==